=== PATIENT | female | born 1945 | race Caucasian/White ===

== ENCOUNTER 2018-07-18 20:27 | Inpatient (IN) | payer MEDICARE, OTHER ==
[~2018-07-18] VITALS: Ht 167.6 cm; Wt 65.5 kg
--- NOTE | ~2018-07-18 | EC ---
PATIENT:ALBINA GARCIA DATE OF SERVICE: 07/18/18 SEX: F MEDICAL RECORD: [id number] DATE OF : 43 LOCATION:[facility] AGE OF PATIENT: 73 ADMISSION DATE: 07/18/18 REFERRING PHYSICIAN: INTERPRETING PHYSICIAN: KAREN BEAULIEU MD ECHOCARDIOGRAM REPORT ECHO CHARGES 4 ECHO COMPLETE Date: 07/20/18 CLINICAL DIAGNOSIS: H/O AVR ECHOCARDIOGRAPHIC MEASUREMENTS (adult normal given) AC root (d.<3.7cm) 3.4 cm LV Septum d (<1.2 cm> 1.6 cm Valve Excursion 1.5 cm LV Septum (systole) 2.3 cm Left Atria (s.<4.0cm> 5.4 cm LVPW d(<1.2cm) 1.5 cm RV (d.<2.3cm) 5.1 cm LVPW (sytole) 1.8 cm LV diastole(<5.6CM) 6.1 cm MV E-F(>70mm/sec) cm LV systole 4.5 cm LVOT Diameter 2.3 cm MV exc.(>10mm) cm Est.ejection fraction (50-75%) % DOPPLER: LVIT cm/sec A 145 cm/sec E 182 cm/sec LA cm/sec RVSP 54.0 mmHg LVOT 73.0 cm/sec AOP1/2T m/s Asc. Ao 229 cm/sec RVOT 49.0 cm/sec RA cm/sec PA 73.0 cm/sec AV Gradient Peak 21.0 mmHg AV Mean 9.7 mmHg AV Area 1.5 cm MV Gradient Peak 17.0 mmHg MV Mean 5.9 mmHg MV Area cm COMMENTS: Inside Wireman: Katy CAGEOE Rn Placement: 1 Dr. Beaulieu TAPE# PACS Pericardial Effusion N DATE OF SERVICE: 07/27/2018 PROCEDURE: Echocardiogram, limited, for ejection fraction. FINDINGS: Left ventricular chamber size is dilated. Left ventricular systolic function is significantly reduced. Overall ejection fraction 20% to 25%. Ejection fraction does appear to be worse than the previous echo done 1 week ago. TRANSINT:[id number] Voice Confirmation ID: [id number] DOCUMENT ID: [id number] ECHOCARDIOGRAM REPORT [id number] ALBINA GARCIA KAREN BEAULIEU MD at 1025 CC: [id number] DICTATION DATE: 07/27/18 1135 JAVA TECHNICAL MANAGER: 07/27/18 1248 ADM IN [facility] [address] [id number]
--- NOTE | ~2018-07-18 | OP ---
PATIENT NAME: ALBINA GARCIA MEDICAL RECORD: [id number] :43 LOCATION:D. D.2105 ADMISSION DATE:07/18/18 SURGEON: KARLIE MENDEZ MD DATE OF OPERATION: 08/12/2018 PREOPERATIVE DIAGNOSIS: End-stage renal disease without chronic access for hemodialysis. POSTOPERATIVE DIAGNOSIS: End-stage renal disease without chronic access for hemodialysis. PROCEDURE: 1. Insertion of left internal jugular HemoSplit catheter (tunneled cuffed dual-lumen hemodialysis catheter) under fluoroscopic guidance. 2. Immediate surgeon interpretation of the fluoroscopic images. SURGEON: Karlie Mendez MD HIGH SCALER: None. BLOOD LOSS: Minimal. ANESTHESIA: Local with IV sedation. COMPLICATIONS: None. The risks, possible complications and alternatives to the procedure were explained to the patient's family. They elected to proceed. Initially, the patient who is demented elected not to have the procedure done. Her also elected not to have the procedure done. A son has now arrived and he has consented for his mother to go ahead and have the HemoSplit procedure performed. The patient pulled her left-sided Trialysis catheter out. There was no radiologist present for this procedure. Static fluoroscopic images were obtained and are kept in the PACS system. The surgeon interpretation of the fluoroscopic images is dictated within the body of this operative note. OPERATIVE COURSE: The patient was conveyed to the operating room electively on 08/12/2018. IV sedation was induced by the anesthesia staff. The left neck and left chest were sterilely prepped and draped. A local anesthetic was used to infiltrate the skin and subcutaneous tissues over the clavicle as well as the left neck. I did not try to place this HemoSplit catheter on the right because there was already a tunneled IV catheter on the right side, such as a Vogt catheter or a Broviac catheter. The patient has a pacemaker on the left, so I needed to try to avoid the pacemaker when inserting this HemoSplit catheter. The patient was positioned in the Trendelenburg position. The left internal jugular vein was percutaneously accessed in an antegrade fashion. A guidewire was passed easily. This was visualized under fluoroscopy. It was advanced into the superior vena cava. A skin jose was accomplished around the wire. Another skin jose was accomplished over the left clavicle. I tunneled a 23 cm HemoSplit catheter from the clavicular incision to the neck incision. Over the wire, I dilated with vascular dilators. This was visualized under fluoroscopy. A dilator sheath was then advanced over the wire. The dilator and wire were removed. Through the sheath, I advanced the tips of the HemoSplit catheter. OPERATIVE REPORT [id number] ALBINA GARCIA The Peel-Away sheath was then removed. I then pulled back on the HemoSplit catheter in order to seat the cuff in the subcutaneous tissues. As it turned out, the cuff came out completely. Under fluoroscopy, there was no apparent kinking or twisting of the HemoSplit catheter. The longest tip of the HemoSplit catheter appeared to be within the superior vena cava. I made an incision laterally from the HemoSplit catheter exit site. I then created subcutaneous flaps. I then buried the cuff as well as the HemoSplit catheter up to the flange with multiple interrupted horizontal mattress 4-0 nylons. The neck incision was closed with a single intracuticular 3-0 Vicryl. The flange of the HemoSplit catheter was sutured to the underlying skin with 4-0 nylons. A sterile dressing was applied. Both lumens flushed easily and aspirated dark, nonpulsatile blood. I then topped off both lumens of the HemoSplit catheter with the appropriate amount of concentrated heparin. TRANSINT:[id number] Voice Confirmation ID: [id number] DOCUMENT ID: [id number] KARLIE MENDEZ MD at 1055 CC: SHARDA WOOTEN MD and MALCOLM ARTHUR [id number] DICTATION DATE: 08/13/18 122 NAIL SPECIALIST: 08/13/18 1611 ADM IN [facility] [address] [place] [address]
--- NOTE | ~2018-07-18 | MORECARE ---
CASE MANAGEMENT DISCHARGE SUMMARY PATIENT: ALBINA GARCIA UNIT: [id number] ADM DATE: 07/18/18 AGE: 73 : [birth year] SEX: F ROOM/BED: D.2104 AUTHOR: CARMEN,DOC PHYSICIAN: REFERRING PHYSICIAN: SHARDA WOOTEN MD DATE OF SERVICE: 07/24/18 Discharge Plan Patient Name: ALBINA GARCIA Facility: [facility]:[place] : 1945 Planned Disposition: Home with Home Health Anticipated Discharge Date: Discharge Date: Expected LOS: Initial Reviewer: [id number] Initial Review Date: 07/18/2018 Generated: 07/24/18 11:24 am Comments DCP- Discharge Planning Updated by [email or web address]: Cesario Ha on 07/24/18 9:[address] Patient Name: ALBINA GARCIA Encounter No: [id number] : 1945 Primary Insurance: MEDICARE A & B Anticipated DC Date: Planned Disposition: Home with Home Health External Planned Provider: [facility] DCP follow-up note: CM CALLED [facility] CENTRAL INTAKE LINE, , SPOKE TO TERESA WHO VERIFIED THEY ARE ACTIVE FOR WOUND VAC AND IV INFUSION SERVICES AT HOME; TERESA IS UNSURE IF PT IS RECEIVING HOME PHYSICAL THERAPY AND WILL NEED THAT ADDED TO AN ORDER FOR HOME HEALTH RESUMPTION. CM FAXED UPDATE TO [facility] AT [phone]. SPOUSE BELIEVES PATIENT MAY NEED A WHEELCHAIR TO ASSIST HIM WITH GETTING PT OUT OF HOME. PT REPORTS PLAN FOR HOME WITH [facility] FOR INFUSION AND WOUND VAC DRESSING CHANGES TO CONTINUE. CM TO FOLLOW AND ASSIST NEEDED. NOTIFY [facility] OF DISCHARGE AT [phone], FAX DISCHARGE INFORMATION TO [facility] AT [phone]. Earring Maker: Cesario Ha DCP- Discharge Planning Updated by [email or web address]: Cesario Ha on 07/23/18 4:[address] Patient Name: ALBINA GARCIA Admission Status: ER Accout number: [id number] Admission Date: 07-18-2018 : 1945 Admission Diagnosis:ACUTE KIDNEY FAILURE, UNSPECIFIED Attending: SHARDA WOOTEN Current LOS: 5 Anticipated DC Date: Planned Disposition: Home with Home Health Primary Insurance: MEDICARE A & B PLANNED EXTERNAL PROVIDER: [facility] OFFICE Discharge Planning Comments: CM MET WITH PT AND SPOUSE IN ROOM TO DISCUSS DISCHARGE PLANNING AND NEEDS. ALBINA GARCIA provided verbal consent to discuss current and ongoing needs with/in the presence of: SPOUSE, RHIANNA. PT REPORTS LIVING AT HOME INDEPENDENTLY WITH HER SPOUSE. PT HAS ROLLING WALKER WITH SEAT AND BRAKES, BEDSIDE COMMODE AND HOME / PORTABLE OXYGEN FROM [facility]. PT HAS HOME HEALTH FOR INFUSION AND WOUND VAC CARE AND DRESSING CHANGES WITH [facility] OUT OF [place]. CM DISCUSSED AVAILABILITY OF HOME HEALTH, REHAB SERVICES AND MEDICAL EQUIPMENT. PT DENIES DISCHARGE NEEDS AND REPORTS SHE IS GOING HOME WITH [facility]. CM DISCUSSED PT'S DOCTOR AND THERAPY NOTES INDICATING PT BEING WEAK AND DISCUSSED AVAILABILITY OF REHAB SERVICES. PT STATES SHE IS GOING HOME AT DISCHARGE AN NO WHERE ELSE. PT'S SPOUSE REPORTS THEY MAY NEED A WHEELCHAIR TO GET PT OUT FOR LONG DISTANCES, SPOUSE WILL PICK PT UP FOR DISCHARGE HOME. IMPORTANT MESSAGE FROM MEDICARE PROVIDED AND EXPLAINED. SPOUSE BELIEVES PATIENT MAY NEED A WHEELCHAIR TO ASSIST HIM WITH GETTING PT OUT OF HOME. PT REPORTS PLAN FOR HOME WITH [facility] FOR INFUSION AND WOUND VAC DRESSING CHANGES TO CONTINUE. CM TO FOLLOW AND ASSIST NEEDED. Earring Maker: Cesario Ha DCPIA - Discharge Planning Initial Assessment Updated by [id number]: Cesario Ha on 07/23/18 5:29 pm * Is the patient Alert and Oriented? Yes * How many steps to enter\exit or inside your home? NONE * PCP DR. YEBOAH IN [place] * Pharmacy [facility] [place] * Preadmission Environment Home with Family * ADLs Partial Dependent * Partial ADLs (Assistance needed) Ambulation Medication Management Transfers * Equipment Bedside Commode Oxygen Rolling Walker Wound Vac * Other Equipment ROLLING WALKER WITH SEAT AND BRAKES HOME AND PORTABLE OXYGEN [facility] - MEDICAL EQUIPMENT PROVIDER * List name and contact numbers for known caregivers / representatives who currently or will assist patient after discharge: RHIANNA GARCIA, SPOUSE, , * Verbal permission to speak to the caregivers and representatives has been obtained from the patient. Yes * Community resources currently utilized Home Health Infusion Services * Please name any agencies selected above. [facility], HAS MEDICATIONS AT HOME * Additional services required to return to the preadmission environment? No * Can the patient safely return to the preadmission environment? Yes * Has this patient been hospitalized within the prior 30 days at any hospital? Yes Coverage Notice Reviewer: [id number] Pedro Luis Ha Notice Issued Date-Time: 07/23/2018 12:00 Notice Type: IM Discharge Notice Notice Delivered To: Family Member Relationship to Patient: Spouse Finish Sander Name: RHIANNA GARCIA Delivery Method: HAND - Hand Delivered Niki Days: Prior Verbal Notification: Recipient Understood Notice: Yes Recipient Signature: Yes Med Rec Note Co-signed by Attending: Coverage Notice Comment: Last DP export: 07/24/18 7:58 Patient Name: ALBINA GARCIA Page 54397 at 1024 All edits/amendments must be made on the electronic document DICTATION DATE: 07/24/18 1024 CULINARY DIRECTOR: EDDA 07/24/18 1024 RPT#: [id number] DC DATE: STATUS: ADM IN [facility] [address] [place] [address] END OF REPORT
--- NOTE | ~2018-07-18 | MORECARE ---
CASE MANAGEMENT DISCHARGE SUMMARY PATIENT: ALBINA GARCIA UNIT: [id number] ADM DATE: 07/18/18 AGE: 73 : 44 SEX: F ROOM/BED: D.2104 AUTHOR: ALEXA MORALES PHYSICIAN: REFERRING PHYSICIAN: SHARDA WOOTEN MD DATE OF SERVICE: 07/23/18 Discharge Plan Patient Name: ALBINA GARCIA Facility: [facility]:[place] : 1945 Planned Disposition: Home with Home Health Anticipated Discharge Date: Discharge Date: Expected LOS: Initial Reviewer: [email or web address] Initial Review Date: 07/18/2018 Generated: 07/23/18 6:29 pm Coverage Notice Reviewer: [id number] - Cesario Ha Notice Issued Date-Time: 07/23/2018 12:00 Notice Type: IM Discharge Notice Notice Delivered To: Family Member Relationship to Patient: Spouse Smash Hand Name: RHIANNA GARCIA Delivery Method: HAND - Hand Delivered Niki Days: Prior Verbal Notification: Recipient Understood Notice: Yes Recipient Signature: Yes Med Rec Note Co-signed by Attending: Coverage Notice Comment: Patient Name: ALBINA GARCIA Page 72340 at 1729 All edits/amendments must be made on the electronic document DICTATION DATE: 07/23/181728 HEEL ATTACHER WOOD: EDDA 07/23/181728 RPT#: [id number] DC DATE: STATUS: ADM IN [place] [address] [place] [address] END OF REPORT
--- NOTE | ~2018-07-18 | MORECARE ---
CASE MANAGEMENT DISCHARGE SUMMARY PATIENT: ALBINA GARCIA UNIT: [id number] ADM DATE: 07/18/18 AGE: 73 : 44 SEX: F ROOM/BED: D.2977 AUTHOR: CARMEN,DOC PHYSICIAN: REFERRING PHYSICIAN: SHARDA WOOTEN MD DATE OF SERVICE: 08/13/18 Discharge Plan Patient Name: ALBINA GARCIA Facility: [facility]:[place] : 1945 Planned Disposition: Mcfp Facility Anticipated Discharge Date: Discharge Date: Expected LOS: Initial Reviewer: [email or web address] Initial Review Date: 07/18/2018 Generated: 08/13/18 4:20 pm Comments DCP- Discharge Planning Updated by [email or web address]: Nitish Ferris on 08/13/18 2:[address] Patient Name: ALBINA GARCIA Encounter No: [id number] : 1945 Primary Insurance: MEDICARE A & B Anticipated DC Date: Planned Disposition: Mcfp Facility External Planned Provider: [facility] OR [facility], MEDICARE REHAB BED DCP follow-up note: CM SPOKE TO PT, SPOUSE AND SON IN ROOM, THEY ARE STILL WANTING REHAB IN [place]UST[place]IAL IN [place], FAMILY CONCERNED NO ONE HAS ACCEPTED YET. CM EXPLAINED THAT IF THE TWO CHOSEN BY FAMILY DO NOT ACCEPT, FAMILY AND CM WILL NEED TO SEND REFERRALS TO OTHERS IN THE [place] AREA. CM SPOKE TO DR. PRIDE, INFORMED THAT PT MAY NEED A SOUMYA DUE TO BEING STARTED ON [place] AND WE ARE WAITING GRADY PSYCH CONSULTATION. CM FAXED REFERRAL UPDATE TO [facility], . CM CALLED [facility], , LEFT MESSAGE FROM ONEAL GOMEZ. CM [facility], . CM CALLED [facility], LEFT MESSAGE FOR TATYANA AT [phone]. [facility] HAS REFUSED PT. CM WAITING ADMISSION DETERMINATIONS FROM [facility] [place] IF ACCEPTED, CM WILL NEED TO ARRANGE OUTPATIENT DIALYSIS UNIT. SAVANNAH TORRES DCP- Discharge Planning Updated by [id number]: Nitish Ferris on 08/11/18 10:[address] Patient Name: ALBINA GARCIA Encounter No: [id number] : 1945 Primary Insurance: MEDICARE A & B Anticipated DC Date: Planned Disposition: Mcfp Facility External Planned Provider: [facility] OR [facility], MEDICARE REHAB BED DCP follow-up note: CM CALLED [facility], [phone], SPOKE TO SANDRA WHO REPORTS THEY ARE NOT CURRENTLY ACCEPTING ANY MORE DIALYSIS PATIENTS. CM FAXED REFERRAL UPDATE TO [facility], . CM FAXED REFERRAL UPDATE TO [facility], , [facility] HAS REFUSED PT. CM WAITING ADMISSION DETERMINATIONS FROM [facility] [place]. IF ACCEPTED, CM WILL NEED TO ARRANGE OUTPATIENT DIALYSIS UNIT. NITISH FERRIS, CASE MANAGEMENT Appended by Nitish Ferris on 08/11/2018 11:19 GUNNER'S MATE M: CM RECEIVED CALL FROM TATYANA OF [facility], WHO WILL COME TO HOSPITAL TODAY TO EVAULATE PT FOR REHAB ADMISSION. THE FACILITY PREFERS Friday DIALYSIS SCHEDULE BUT MAY BE ABLE TO ACCOMODATE Friday SCHEDULE IF NECESSARY. TATYANA LEFT CONTACT NUMBER OF [phone]. EUN OF [facility] PATHWAYS NOTIFIED. [facility] HAS REFUSED PT. CM WAITING ADMISSION DETERMINATIONS FROM [facility] [place]. IF ACCEPTED, CM WILL NEED TO ARRANGE OUTPATIENT DIALYSIS UNIT. SAVANNAH TORRES DCP- Discharge Planning Updated by [id number]: Nitish Ferris on 08/07/18 3:[address] Patient Name: ALBINA GARCIA Encounter No: [id number] : 1945 Primary Insurance: MEDICARE A & B Anticipated DC Date: Planned Disposition: Mcfp Facility External Planned Provider: [facility] OR [facility], MEDICARE REHAB BED DCP follow-up note: CM MET WITH PT, SPOUSE AND SON IN ROOM TO DISCUSS DISCHARGE PLANNING AND NEEDS. PT WOULD ONLY ANSWER DIRECT QUESTIONS AND DID NOT ACTIVELY PARTICIPATE IN DISCHARGE PLANNING. PT'S SPOUSE AND SON ARE REQUESTING REHAB IN [place] AT [facility], [facility] OR [facility]. CHOICE SIGNED. CM NOTIFIED EUN RICHARD OF PATIENT PATHWAYS OF DISCHARGE PLAN. CM CALLED [facility], [phone], SPOKE TO SANDRA WHO REPORTS THEY ARE NOT CURRENTLY ACCEPTING ANY MORE DIALYSIS PATIENTS. CM CALLED [facility], , LEFT MESSAGE FOR ONEAL GOMEZ OF ADMISSIONS AND FAXED REFERRAL TO [phone]. THEY CAN ACCOMODATE DIALYSIS PATIENTS IN FACILITY. CM CALLED [facility], , SPOKE TO ALBINA, FAXED REFERRAL TO [phone], ATTENTION ADMISSIONS. THEY CAN ACCOMODATE DIALYSIS PATIENTS IN FACILITY. [facility] WILL NOT ACCEPT. CM WAITING ADMISSION DETERMINATIONS FROM [facility] IN [place]. IF ACCEPTED, CM WILL NEED TO ARRANGE OUTPATIENT DIALYSIS UNIT. NITISH FERRIS, CASE MANAGEMENT DCP- Discharge Planning Updated by [id number]: Nitish Ferris on 08/06/18 2:[address] Patient Name: ALBINA GARCIA Encounter No: [id number] : 1945 Primary Insurance: MEDICARE A & B Anticipated DC Date: Planned Disposition: Mcfp Facility External Planned Provider: TO BE DETERMINED DCP follow-up note: CM MET WITH PT AND SON IN ROOM TO DISCUSS DISCHARGE PLANNING AND NEEDS. PT'S SON INFORMED CM THAT PT'S SPOUSE ALONG WITH HE WILL BE ASSISTING WITH DISCHARGE PLANNING, THEY ARE CONSIDERING CUSTODIAL FOR REHAB AND BOTH WANT TO BE PRESENT TO DISCUSS ISSUES. PT'S SPOUSE IS OUT OF TOWN TODAY AND WILL BE BACK SOMETIME TOMORROW AND WILL NOTIFY CM WHEN THEY ARRIVE AT HOSPITAL TO DISCUSS DISCHARGE PLANNING. CM PROVIDED HOSPITAL WALL COVERING CONTRACTOR AND CM CONTACT INFORMATION. CM WAITING FAMILY ARRIVAL 08-07-18, TO DISCUSS CUSTODIAL REHAB PLACEMENT OPTIONS. Nitish Ferris, CASE MANAGEMENT DCP- Discharge Planning Updated by [id number]: Peyton Burrows on 07/27/18 5:[address] CM SPOKE WITH DAJUAN WITH [facility] CALLED REQUESTING FOR NOTIFICATION OF DISCHARGE [phone] DIRECT NUMBER [phone].CM will continue to follow and assist as needed with discharge planning / needs. DCP- Discharge Planning Updated by [id number]: Nitish Ferris on 07/24/18 9:[address] Patient Name: ALBINA GARCIA Encounter No: [id number] : 1945 Primary Insurance: MEDICARE A & B Anticipated DC Date: Planned Disposition: Home with Home Health External Planned Provider: [facility] DCP follow-up note: CM CALLED [facility] CENTRAL INTAKE LINE, , SPOKE TO TERESA WHO VERIFIED THEY ARE ACTIVE FOR WOUND VAC AND IV INFUSION SERVICES AT HOME; TERESA IS UNSURE IF PT IS RECEIVING HOME PHYSICAL THERAPY AND WILL NEED THAT ADDED TO AN ORDER FOR HOME HEALTH RESUMPTION. CM FAXED UPDATE TO [facility] AT [phone]. SPOUSE BELIEVES PATIENT MAY NEED A WHEELCHAIR TO ASSIST HIM WITH GETTING PT OUT OF HOME. PT REPORTS PLAN FOR HOME WITH [facility] FOR INFUSION AND WOUND VAC DRESSING CHANGES TO CONTINUE. CM TO FOLLOW AND ASSIST NEEDED. NOTIFY [facility] OF DISCHARGE AT [phone], FAX DISCHARGE INFORMATION TO [facility] AT [phone]. Director Of Neurology: Nitish Ferris DCP- Discharge Planning Updated by [id number]: Nitish Ferris on 07/23/18 4:[address] Patient Name: ALBINA GARCIA Admission Status: ER Accout number: [id number] Admission Date: 07-18-2018 : 1945 Admission Diagnosis:ACUTE KIDNEY FAILURE, UNSPECIFIED Attending: SHARDA WOOTEN Current LOS: 5 Anticipated DC Date: Planned Disposition: Home with Home Health Primary Insurance: MEDICARE A & B PLANNED EXTERNAL PROVIDER: [facility] OFFICE Discharge Planning Comments: CM MET WITH PT AND SPOUSE IN ROOM TO DISCUSS DISCHARGE PLANNING AND NEEDS. ALBINA GARCIA provided verbal consent to discuss current and ongoing needs with/in the presence of: SPOUSE, RHIANNA. PT REPORTS LIVING AT HOME INDEPENDENTLY WITH HER SPOUSE. PT HAS ROLLING WALKER WITH SEAT AND BRAKES, BEDSIDE COMMODE AND HOME / PORTABLE OXYGEN FROM [facility]. PT HAS HOME HEALTH FOR INFUSION AND WOUND VAC CARE AND DRESSING CHANGES WITH [facility] OUT OF [place]. CM DISCUSSED AVAILABILITY OF HOME HEALTH, REHAB SERVICES AND MEDICAL EQUIPMENT. PT DENIES DISCHARGE NEEDS AND REPORTS SHE IS GOING HOME WITH [facility]. CM DISCUSSED PT'S DOCTOR AND THERAPY NOTES INDICATING PT BEING WEAK AND DISCUSSED AVAILABILITY OF REHAB SERVICES. PT STATES SHE IS GOING HOME AT DISCHARGE AN NO WHERE ELSE. PT'S SPOUSE REPORTS THEY MAY NEED A WHEELCHAIR TO GET PT OUT FOR LONG DISTANCES, SPOUSE WILL PICK PT UP FOR DISCHARGE HOME. IMPORTANT MESSAGE FROM MEDICARE PROVIDED AND EXPLAINED. SPOUSE BELIEVES PATIENT MAY NEED A WHEELCHAIR TO ASSIST HIM WITH GETTING PT OUT OF HOME. PT REPORTS PLAN FOR HOME WITH [facility] FOR INFUSION AND WOUND VAC DRESSING CHANGES TO CONTINUE. CM TO FOLLOW AND ASSIST NEEDED. Director Of Neurology: Nitish Ferris DCPIA - Discharge Planning Initial Assessment Updated by [email or web address]: Nitish Ferris on 07/23/18 5:29 pm * Is the patient Alert and Oriented? Yes * How many steps to enter\exit or inside your home? NONE * PCP DR. YEBOAH IN [place] * Pharmacy [facility] [place] * Preadmission Environment Home with Family * ADLs Partial Dependent * Partial ADLs (Assistance needed) Ambulation Medication Management Transfers * Equipment Bedside Commode Oxygen Rolling Walker Wound Vac * Other Equipment ROLLING WALKER WITH SEAT AND BRAKES HOME AND PORTABLE OXYGEN [facility] - MEDICAL EQUIPMENT PROVIDER * List name and contact numbers for known caregivers / representatives who currently or will assist patient after discharge: RHIANNA GARCIA, SPOUSE, , * Verbal permission to speak to the caregivers and representatives has been obtained from the patient. Yes * Community resources currently utilized Home Health Infusion Services * Please name any agencies selected above. [facility], [facility] [employer], HAS MEDICATIONS AT HOME * Additional services required to return to the preadmission environment? No * Can the patient safely return to the preadmission environment? Yes * Has this patient been hospitalized within the prior 30 days at any hospital? Yes Coverage Notice Reviewer: [id number] - Nitish Ferris Notice Issued Date-Time: 07/23/2018 12:00 Notice Type: IM Discharge Notice Notice Delivered To: Family Member Relationship to Patient: Spouse Hyperion Administrator Name: RHIANNA GARCIA Delivery Method: HAND - Hand Delivered Niki Days: Prior Verbal Notification: Recipient Understood Notice: Yes Recipient Signature: Yes Med Rec Note Co-signed by Attending: Coverage Notice Comment: Reviewer: [id number] - Nitish Ferris Notice Issued Date-Time: 08/07/2018 11:45 Notice Type: Patient Choice Letter Notice Delivered To: Family Member Relationship to Patient: Spouse Hyperion Administrator Name: RHIANNA GARCIA Delivery Method: HAND - Hand Delivered Niki Days: Prior Verbal Notification: Recipient Understood Notice: Yes Recipient Signature: Yes Med Rec Note Co-signed by Attending: Coverage Notice Comment: [facility] [place] Last DP export: 08/11/18 10:25 Patient Name: ALBINA GARCIA Page 15345 at 1521 All edits/amendments must be made on the electronic document DICTATION DATE: 08/13/181519 TOOL DESIGN DRAFTER: EDDA 08/13/181519 RPT#: [id number] DC DATE: STATUS: ADM IN [facility] [address] [place] [address] END OF REPORT
--- NOTE | ~2018-07-18 | MORECARE ---
CASE MANAGEMENT DISCHARGE SUMMARY PATIENT: ALBINA GARCIA UNIT: [id number] ADM DATE: 07/18/18 AGE: 73 : 43 SEX: F ROOM/BED: D.8346 AUTHOR: CARMEN,DOC PHYSICIAN: REFERRING PHYSICIAN: SHARDA WOOTEN MD DATE OF SERVICE: 08/17/18 Discharge Plan Patient Name: ALBINA GARCIA Facility: [facility]:[place] : 1945 Planned Disposition: Residential Facility Anticipated Discharge Date: 08/17/18 Discharge Date: 08/17/2018 Expected LOS: 30 Initial Reviewer: [id number] Initial Review Date: 07/18/2018 Generated: 08/17/18 10:02 am Comments DCP- Discharge Planning Updated by [id number]: Nitish Ferris on 08/17/18 8:[address] Patient Name: ALBINA GARCIA Encounter No: [id number] : 1945 Primary Insurance: MEDICARE A & B Anticipated DC Date: 08-17-2018 Planned Disposition: DCP follow-up note: CM WAS NOTIFIED THAT PT . CM [facility]ED [facility], CANCELLED PLACEMENT REFERRAL WITH TATYANA AT [phone]. Nitish Ferris, CASE MANAGEMENT DCP- Discharge Planning Updated by [id number]: Nitish Ferris on 08/13/18 2:[address] Patient Name: ALBINA GARCIA Encounter No: [id number] : 1945 Primary Insurance: MEDICARE A & B Anticipated DC Date: Planned Disposition: Residential Facility External Planned Provider: [facility], MEDICARE REHAB BED DCP follow-up note: CM SPOKE TO PT, SPOUSE AND SON IN ROOM, THEY ARE STILL WANTING REHAB IN [facility] IN [place], FAMILY CONCERNED NO ONE HAS ACCEPTED YET. CM EXPLAINED THAT IF THE TWO CHOSEN BY FAMILY DO NOT ACCEPT, FAMILY AND CM WILL NEED TO SEND REFERRALS TO OTHERS IN THE [place] AREA. CM SPOKE TO DR. PRIDE, INFORMED THAT PT MAY NEED A SOUMYA DUE TO BEING STARTED ON [place] AND WE ARE WAITING GRADY PSYCH CONSULTATION. CM FAXED REFERRAL UPDATE TO [facility], . CM CALLED [facility], , LEFT MESSAGE FROM ONEAL GOMEZ. CM FAXED REFERRAL UPDATE TO [facility], . CM CALLED [facility], LEFT MESSAGE FOR TATYANA AT [phone]. [facility] HAS REFUSED PT. CM WAITING ADMISSION DETERMINATIONS FROM [facility] [place]. IF ACCEPTED, CM WILL NEED TO ARRANGE OUTPATIENT DIALYSIS UNIT. NITISH FERRIS, CASE MANAGEMENT DCP- Discharge Planning Updated by [id number]: Nitish Ferris on 08/11/18 10:[address] Patient Name: ALBINA GARCIA Encounter No: [id number] : 1945 Primary Insurance: MEDICARE A & B Anticipated DC Date: Planned Disposition: Residential Facility External Planned Provider: [facility] OR [facility], MEDICARE REHAB BED DCP follow-up note: CM CALLED [facility], [phone], SPOKE TO SANDRA WHO REPORTS THEY ARE NOT CURRENTLY ACCEPTING ANY MORE DIALYSIS PATIENTS. CM [facility], . CM FAXED REFERRAL UPDATE TO [facility], , [facility] HAS REFUSED PT. CM WAITING ADMISSION DETERMINATIONS FROM [facility] [place]. IF ACCEPTED, CM WILL NEED TO ARRANGE OUTPATIENT DIALYSIS UNIT. NITISH FERRIS, CASE MANAGEMENT Appended by Nitish Ferris on 08/11/2018 11:19 LACTATION NURSE: CM RECEIVED CALL FROM TATYANA OF [facility], WHO WILL COME TO HOSPITAL TODAY TO EVAULATE PT FOR REHAB ADMISSION. THE FACILITY PREFERS Friday DIALYSIS SCHEDULE BUT MAY BE ABLE TO ACCOMODATE Friday SCHEDULE IF NECESSARY. TATYANA LEFT CONTACT NUMBER OF [phone]. EUN OF [facility] NOTIFIED. [facility]KKRAIG[facility] HAS REFUSED PT. CM WAITING ADMISSION DETERMINATIONS FROM [facility] [place]. IF ACCEPTED, CM WILL NEED TO ARRANGE OUTPATIENT DIALYSIS UNIT. NITISH FERRIS CASE MANAGEMENT DCP- Discharge Planning Updated by [email or web address]: Nitish Ferris on 08/07/18 3:[address] Patient Name: ALBINA GARCIA Encounter No: [id number] : 1945 Primary Insurance: MEDICARE A & B Anticipated DC Date: Planned Disposition: Residential Facility External Planned Provider: [facility] OR [facility], MEDICARE REHAB BED DCP follow-up note: CM MET WITH PT, SPOUSE AND SON IN ROOM TO DISCUSS DISCHARGE PLANNING AND NEEDS. PT WOULD ONLY ANSWER DIRECT QUESTIONS AND DID NOT ACTIVELY PARTICIPATE IN DISCHARGE PLANNING. PT'S SPOUSE AND SON ARE REQUESTING REHAB IN [place] AT [facility], [facility] OR [facility]. CHOICE SIGNED. CM NOTIFIED EUN RICHARD OF [facility] OF DISCHARGE PLAN. CM CALLED [facility], [phone], SPOKE TO SANDRA WHO REPORTS THEY ARE NOT CURRENTLY ACCEPTING ANY MORE DIALYSIS PATIENTS. CM CALLED [facility], , LEFT MESSAGE FOR ONEAL GOMEZ OF ADMISSIONS AND FAXED REFERRAL TO [phone]. THEY CAN ACCOMODATE DIALYSIS PATIENTS IN FACILITY. CM CALLED [facility], , SPOKE TO ALBINA, FAXED REFERRAL TO [phone], ATTENTION ADMISSIONS. THEY CAN ACCOMODATE DIALYSIS PATIENTS IN FACILITY. [facility] WILL NOT ACCEPT. CM WAITING ADMISSION DETERMINATIONS FROM [facility] IN [place]. IF ACCEPTED, CM WILL NEED TO ARRANGE OUTPATIENT DIALYSIS UNIT. SAVANNAH TORRES MANAGEMENT DCP- Discharge Planning Updated by [id number]: Nitish Ferris on 08/06/18 2:[address] Patient Name: ALBINA GARCIA Encounter No: [id number] : 1945 Primary Insurance: MEDICARE A & B Anticipated DC Date: Planned Disposition: Residential Facility External Planned Provider: TO BE DETERMINED DCP follow-up note: CM MET WITH PT AND SON IN ROOM TO DISCUSS DISCHARGE PLANNING AND NEEDS. PT'S SON INFORMED CM THAT PT'S SPOUSE ALONG WITH HE WILL BE ASSISTING WITH DISCHARGE PLANNING, THEY ARE CONSIDERING [facility] FOR REHAB AND BOTH WANT TO BE PRESENT TO DISCUSS ISSUES. PT'S SPOUSE IS OUT OF TOWN TODAY AND WILL BE BACK SOMETIME TOMORROW AND WILL NOTIFY CM WHEN THEY ARRIVE AT HOSPITAL TO DISCUSS DISCHARGE PLANNING. CM PROVIDED HOSPITAL FOUNDER AND PRESIDENT AND CM CONTACT INFORMATION. CM WAITING FAMILY ARRIVAL 08-07-18, TO DISCUSS [facility] REHAB PLACEMENT OPTIONS. Nitish Ferris, CASE MANAGEMENT DCP- Discharge Planning Updated by [id number]: Peyton Burrows on 07/27/18 5:[address] CM SPOKE WITH CRYSTAL WITH [facility] CALLED REQUESTING FOR NOTIFICATION OF DISCHARGE [phone] DIRECT NUMBER [phone].CM will continue to follow and assist as needed with discharge planning / needs. DCP- Discharge Planning Updated by [id number]: Nitish Ferris on 07/24/18 9:[address] Patient Name: ALBINA GARCIA Encounter No: [id number] : 1945 Primary Insurance: MEDICARE A & B Anticipated DC Date: Planned Disposition: Home with Home Health External Planned Provider: [facility] DCP follow-up note: CM CALLED [facility]TRAL INTAKE LINE, , SPOKE TO TERESA WHO VERIFIED THEY ARE ACTIVE FOR WOUND VAC AND IV INFUSION SERVICES AT HOME; TERESA IS UNSURE IF PT IS RECEIVING HOME PHYSICAL THERAPY AND WILL NEED THAT ADDED TO AN ORDER FOR HOME HEALTH RESUMPTION. CM FAXED UPDATE TO [facility] AT [phone]. SPOUSE BELIEVES PATIENT MAY NEED A WHEELCHAIR TO ASSIST HIM WITH GETTING PT OUT OF HOME. PT REPORTS PLAN FOR HOME WITH [facility] FOR INFUSION AND WOUND VAC DRESSING CHANGES TO CONTINUE. CM TO FOLLOW AND ASSIST NEEDED. NOTIFY [facility] OF DISCHARGE AT [phone], FAX DISCHARGE INFORMATION TO [facility] AT [phone]. Clinical Orthoptist: Nitish Ferris DCP- Discharge Planning Updated by [id number]: Nitish Ferris on 07/23/18 4:[address] Patient Name: ALBINA GARCIA Admission Status: ER Accout number: [id number] Admission Date: 07-18-2018 : 1945 Admission Diagnosis:ACUTE KIDNEY FAILURE, UNSPECIFIED Attending: SHARDA WOOTEN Current LOS: 5 Anticipated DC Date: Planned Disposition: Home with Home Health Primary Insurance: MEDICARE A & B PLANNED EXTERNAL PROVIDER: [facility] OFFICE Discharge Planning Comments: CM MET WITH PT AND SPOUSE IN ROOM TO DISCUSS DISCHARGE PLANNING AND NEEDS. ALBINA GARCIA provided verbal consent to discuss current and ongoing needs with/in the presence of: SPOUSE, RHIANNA. PT REPORTS LIVING AT HOME INDEPENDENTLY WITH HER SPOUSE. PT HAS ROLLING WALKER WITH SEAT AND BRAKES, BEDSIDE COMMODE AND HOME / PORTABLE OXYGEN FROM [facility]. PT HAS HOME HEALTH FOR INFUSION AND WOUND VAC CARE AND DRESSING CHANGES WITH [facility] OUT OF [place]. CM DISCUSSED AVAILABILITY OF HOME HEALTH, REHAB SERVICES AND MEDICAL EQUIPMENT. PT DENIES DISCHARGE NEEDS AND REPORTS SHE IS GOING HOME WITH CONTINUED HOME HEALTH. CM DISCUSSED PT'S DOCTOR AND THERAPY NOTES INDICATING PT BEING WEAK AND DISCUSSED AVAILABILITY OF REHAB SERVICES. PT STATES SHE IS GOING HOME AT DISCHARGE AN NO WHERE ELSE. PT'S SPOUSE REPORTS THEY MAY NEED A WHEELCHAIR TO GET PT OUT FOR LONG DISTANCES, SPOUSE WILL PICK PT UP FOR DISCHARGE HOME. IMPORTANT MESSAGE FROM MEDICARE PROVIDED AND EXPLAINED. SPOUSE BELIEVES PATIENT MAY NEED A WHEELCHAIR TO ASSIST HIM WITH GETTING PT OUT OF HOME. PT REPORTS PLAN FOR HOME WITH [facility] FOR INFUSION AND WOUND VAC DRESSING CHANGES TO CONTINUE. CM TO FOLLOW AND ASSIST NEEDED. Clinical Orthoptist: Nitish Ferris DCPIA - Discharge Planning Initial Assessment Updated by [id number]: Nitish Ferris on 07/23/18 5:29 pm * Is the patient Alert and Oriented? Yes * How many steps to enter\exit or inside your home? NONE * PCP DR. YEBOAH IN [place] * Pharmacy [facility] IN [place] * Preadmission Environment Home with Family * ADLs Partial Dependent * Partial ADLs (Assistance needed) Ambulation Medication Management Transfers * Equipment Bedside Commode Oxygen Rolling Walker Wound Vac * Other Equipment ROLLING WALKER WITH SEAT AND BRAKES HOME AND PORTABLE OXYGEN [facility] - MEDICAL EQUIPMENT PROVIDER * List name and contact numbers for known caregivers / representatives who currently or will assist patient after discharge: RHIANNA GARCIA, SPOUSE, , * Verbal permission to speak to the caregivers and representatives has been obtained from the patient. Yes * Community resources currently utilized Home Health Infusion Services * Please name any agencies selected above. [facility] [employer], HAS MEDICATIONS AT HOME * Additional services required to return to the preadmission environment? No * Can the patient safely return to the preadmission environment? Yes * Has this patient been hospitalized within the prior 30 days at any hospital? Yes Coverage Notice Reviewer: [id number] Pedro Luis Ferris Notice Issued Date-Time: 07/23/2018 12:00 Notice Type: IM Discharge Notice Notice Delivered To: Family Member Relationship to Patient: Spouse Tie Presser Name: RHIANNA GARCIA Delivery Method: HAND - Hand Delivered Niki Days: Prior Verbal Notification: Recipient Understood Notice: Yes Recipient Signature: Yes Med Rec Note Co-signed by Attending: Coverage Notice Comment: Reviewer: [id number] Pedro Luis Ferris Notice Issued Date-Time: 08/07/2018 11:45 Notice Type: Patient Choice Letter Notice Delivered To: Family Member Relationship to Patient: Spouse Tie Presser Name: RHIANNA GARCIA Delivery Method: HAND - Hand Delivered Niki Days: Prior Verbal Notification: Recipient Understood Notice: Yes Recipient Signature: Yes Med Rec Note Co-signed by Attending: Coverage Notice Comment: [facility] [place] Last DP export: 08/13/18 2:20 Patient Name: ALBINA GARCIA Page 53825 at 0902 All edits/amendments must be made on the electronic document DICTATION DATE: 08/17/18901 MANAGER AGRICULTURAL: EDDA 08/17/18901 RPT#: [id number] DC DATE:08/17/18 STATUS: DIS IN [facility] [address] [place] [address] END OF REPORT
--- NOTE | ~2018-07-18 | MORECARE ---
CASE MANAGEMENT DISCHARGE SUMMARY PATIENT: ALBINA GARCIA UNIT: [id number] ADM DATE: 07/18/18 AGE: 73 : 44 SEX: F ROOM/BED: D.2109 AUTHOR: CARMENDOC PHYSICIAN: REFERRING PHYSICIAN: SHARDA WOOTEN MD DATE OF SERVICE: 08/07/18 Discharge Plan Patient Name: ALBINA GARCIA Facility: [facility]:[place] : 1945 Planned Disposition: Snf Facility Anticipated Discharge Date: Discharge Date: Expected LOS: Initial Reviewer: [id number] Initial Review Date: 07/18/2018 Generated: 08/07/18 5:45 pm Comments DCP- Discharge Planning Updated by [id number]: Cesario Ha on 08/06/18 2:[address] Patient Name: ALBINA GARCIA Encounter No: [id number] : 1945 Primary Insurance: MEDICARE A & B Anticipated DC Date: Planned Disposition: Snf Facility External Planned Provider: TO BE DETERMINED DCP follow-up note: CM MET WITH PT AND SON IN ROOM TO DISCUSS DISCHARGE PLANNING AND NEEDS. PT'S SON INFORMED CM THAT PT'S SPOUSE ALONG WITH HE WILL BE ASSISTING WITH DISCHARGE PLANNING, THEY ARE CONSIDERING [facility] FOR REHAB AND BOTH WANT TO BE PRESENT TO DISCUSS ISSUES. PT'S SPOUSE IS OUT OF TOWN TODAY AND WILL BE BACK SOMETIME TOMORROW AND WILL NOTIFY CM WHEN THEY ARRIVE AT HOSPITAL TO DISCUSS DISCHARGE PLANNING. CM PROVIDED HOSPITAL BULB PLANTER AND CM CONTACT INFORMATION. CM WAITING FAMILY ARRIVAL 08-07-18, TO DISCUSS [facility] REHAB PLACEMENT OPTIONS. Cesario Ha, SAVANNAH MANAGEMENT DCP- Discharge Planning Updated by [id number]: Peyton Burrows on 07/27/18 5:[address] CM SPOKE WITH DAJUAN WITH [facility] CALLED REQUESTING FOR NOTIFICATION OF DISCHARGE [phone] DIRECT NUMBER [phone].CM will continue to follow and assist as needed with discharge planning / needs. DCP- Discharge Planning Updated by [email or web address]: Cesario Ha on 07/24/18 9:[address] Patient Name: ALBINA GARCIA Encounter No: [id number] : 1945 Primary Insurance: MEDICARE A & B Anticipated DC Date: Planned Disposition: Home with Home Health External Planned Provider: [facility] DCP follow-up note: CM CALLED [facility] CENTRAL INTAKE LINE, , SPOKE TO TERESA WHO VERIFIED THEY ARE ACTIVE FOR WOUND VAC AND IV INFUSION SERVICES AT HOME; TERESA IS UNSURE IF PT IS RECEIVING HOME PHYSICAL THERAPY AND WILL NEED THAT ADDED TO AN ORDER FOR HOME HEALTH RESUMPTION. CM FAXED UPDATE TO [facility] AT [phone]. SPOUSE BELIEVES PATIENT MAY NEED A WHEELCHAIR TO ASSIST HIM WITH GETTING PT OUT OF HOME. PT REPORTS PLAN FOR HOME WITH [facility] FOR INFUSION AND WOUND VAC DRESSING CHANGES TO CONTINUE. CM TO FOLLOW AND ASSIST NEEDED. NOTIFY [facility] OF DISCHARGE AT [phone], FAX DISCHARGE INFORMATION TO [facility] AT [phone]. Engineering Writer: Cesario Ha DCP- Discharge Planning Updated by [id number]: Cesario Ha on 07/23/18 4:[address] Patient Name: ALBINA GARCIA Admission Status: ER Accout number: [id number] Admission Date: 07-18-2018 : 1945 Admission Diagnosis:ACUTE KIDNEY FAILURE, UNSPECIFIED Attending: SHARDA WOOTEN Current LOS: 5 Anticipated DC Date: Planned Disposition: Home with Home Health Primary Insurance: MEDICARE A & B PLANNED EXTERNAL PROVIDER: [facility] OFFICE Discharge Planning Comments: CM MET WITH PT AND SPOUSE IN ROOM TO DISCUSS DISCHARGE PLANNING AND NEEDS. ALBINA GARCIA provided verbal consent to discuss current and ongoing needs with/in the presence of: SPOUSE, RHIANNA. PT REPORTS LIVING AT HOME INDEPENDENTLY WITH HER SPOUSE. PT HAS ROLLING WALKER WITH SEAT AND BRAKES, BEDSIDE COMMODE AND HOME / PORTABLE OXYGEN FROM [facility]. PT HAS HOME HEALTH FOR INFUSION AND WOUND VAC CARE AND DRESSING CHANGES WITH [facility] OUT OF [place]. CM DISCUSSED AVAILABILITY OF HOME HEALTH, REHAB SERVICES AND MEDICAL EQUIPMENT. PT DENIES DISCHARGE NEEDS AND REPORTS SHE IS GOING HOME WITH CONT[facility] HOME HEALTH. CM DISCUSSED PT'S DOCTOR AND THERAPY NOTES INDICATING PT BEING WEAK AND DISCUSSED AVAILABILITY OF REHAB SERVICES. PT STATES SHE IS GOING HOME AT DISCHARGE AN NO WHERE ELSE. PT'S SPOUSE REPORTS THEY MAY NEED A WHEELCHAIR TO GET PT OUT FOR LONG DISTANCES, SPOUSE WILL PICK PT UP FOR DISCHARGE HOME. IMPORTANT MESSAGE FROM MEDICARE PROVIDED AND EXPLAINED. SPOUSE BELIEVES PATIENT MAY NEED A WHEELCHAIR TO ASSIST HIM WITH GETTING PT OUT OF HOME. PT REPORTS PLAN FOR HOME WITH [facility] FOR INFUSION AND WOUND VAC DRESSING CHANGES TO CONTINUE. CM TO FOLLOW AND ASSIST NEEDED. Engineering Writer: Cesario Ha DCPIA - Discharge Planning Initial Assessment Updated by [email or web address]: Cesario Ha on 07/23/18 5:29 pm * Is the patient Alert and Oriented? Yes * How many steps to enter\exit or inside your home? NONE * PCP DR. YEBOAH IN [place] * Pharmacy [facility] IN [place] * Preadmission Environment Home with Family * ADLs Partial Dependent * Partial ADLs (Assistance needed) Ambulation Medication Management Transfers * Equipment Bedside Commode Oxygen Rolling Walker Wound Vac * Other Equipment ROLLING WALKER WITH SEAT AND BRAKES HOME AND PORTABLE OXYGEN [facility] - MEDICAL EQUIPMENT PROVIDER * List name and contact numbers for known caregivers / representatives who currently or will assist patient after discharge: RHIANNA GARCIA, SPOUSE, , * Verbal permission to speak to the caregivers and representatives has been obtained from the patient. Yes * Community resources currently utilized Home Health Infusion Services * Please name any agencies selected above. [facility], HAS MEDICATIONS AT HOME * Additional services required to return to the preadmission environment? No * Can the patient safely return to the preadmission environment? Yes * Has this patient been hospitalized within the prior 30 days at any hospital? Yes External Providers External Provider: OTHER-OTHER Next Contact Date: 08/10/2018 Service Request Date: Service Type: Resolution: Reviewer: Comments: External Provider: OTHER-OTHER Next Contact Date: 08/10/2018 Service Request Date: Service Type: Resolution: Reviewer: Comments: Coverage Notice Reviewer: [id number] - Cesario Ha Notice Issued Date-Time: 07/23/2018 12:00 Notice Type: IM Discharge Notice Notice Delivered To: Family Member Relationship to Patient: Spouse Aerospace Engineer Officer Armament Name: RHIANNA GARCIA Delivery Method: HAND - Hand Delivered Niki Days: Prior Verbal Notification: Recipient Understood Notice: Yes Recipient Signature: Yes Med Rec Note Co-signed by Attending: Coverage Notice Comment: Last DP export: 08/07/18 3:23 Patient Name: ALBINA GARCIA Page 83405 at 1645 All edits/amendments must be made on the electronic document DICTATION DATE: 08/07/181644 DENTAL LABORATORY TECHNICIAN APPRENTICE: EDDA 08/07/181644 RPT#: [id number] DC DATE: STATUS: ADM IN [facility] [address] [place] [address] END OF REPORT
--- NOTE | ~2018-07-18 | MORECARE ---
CASE MANAGEMENT DISCHARGE SUMMARY PATIENT: ALBINA GARCIA UNIT: [id number] ADM DATE: 07/18/18 AGE: 73 : 43 SEX: F ROOM/BED: D.0343 AUTHOR: CARMEN,DOC PHYSICIAN: REFERRING PHYSICIAN: SHARDA WOOTEN MD DATE OF SERVICE: 08/11/18 Discharge Plan Patient Name: ALBINA GARCIA Facility: [facility]:[place] : 1945 Planned Disposition: Custodial Facility Anticipated Discharge Date: Discharge Date: Expected LOS: Initial Reviewer: [id number] Initial Review Date: 07/18/2018 Generated: 08/11/18 9:23 am Comments DCP- Discharge Planning Updated by [id number]: Nitish Ferris on 08/11/18 7:[address] Patient Name: ALBINA GARCIA Encounter No: [id number] : 1945 Primary Insurance: MEDICARE A & B Anticipated DC Date: Planned Disposition: Custodial Facility External Planned Provider: [facility] OR [facility], MEDICARE REHAB BED DCP follow-up note: CM CALLED [facility], [phone], SPOKE TO SANDRA WHO REPORTS THEY ARE NOT CURRENTLY ACCEPTING ANY MORE DIALYSIS PATIENTS. CM FAXED REFERRAL UPDATE TO [facility], . CM FAXED REFERRAL UPDATE TO [facility], , [facility] HAS REFUSED PT. CM WAITING ADMISSION DETERMINATIONS FROM [facility] IN [place]. IF ACCEPTED, CM WILL NEED TO ARRANGE OUTPATIENT DIALYSIS UNIT. SAVANNAH TORRES DCP- Discharge Planning Updated by [id number]: Nitish Ferris on 08/07/18 3:[address] Patient Name: ALBINA GARCIA Encounter No: [id number] : 1945 Primary Insurance: MEDICARE A & B Anticipated DC Date: Planned Disposition: Custodial Facility External Planned Provider: [facility] OR [facility], MEDICARE REHAB BED DCP follow-up note: CM MET WITH PT, SPOUSE AND SON IN ROOM TO DISCUSS DISCHARGE PLANNING AND NEEDS. PT WOULD ONLY ANSWER DIRECT QUESTIONS AND DID NOT ACTIVELY PARTICIPATE IN DISCHARGE PLANNING. PT'S SPOUSE AND SON ARE REQUESTING REHAB IN [place] AT [facility], [facility] OR [facility]. CHOICE SIGNED. CM NOTIFIED EUN RICHARD OF PATIENT PATHWAYS OF DISCHARGE PLAN. CM CALLED [facility], [phone], SPOKE TO SANDRA WHO REPORTS THEY ARE NOT CURRENTLY ACCEPTING ANY MORE DIALYSIS PATIENTS. CM CALLED [facility], , LEFT MESSAGE FOR ONEAL GOMEZ OF ADMISSIONS AND FAXED REFERRAL TO [phone]. THEY CAN ACCOMODATE DIALYSIS PATIENTS IN FACILITY. CM CALLED [facility], , SPOKE TO ALBINA, FAXED REFERRAL TO [phone], ATTENTION ADMISSIONS. THEY CAN ACCOMODATE DIALYSIS PATIENTS IN FACILITY. [facility] WILL NOT ACCEPT. CM WAITING ADMISSION DETERMINATIONS FROM [facility] IN [place]. IF ACCEPTED, CM WILL NEED TO ARRANGE OUTPATIENT DIALYSIS UNIT. NITISH FERRIS, CASE MANAGEMENT DCP- Discharge Planning Updated by [id number]: Nitish Ferris on 08/06/18 2:[address] Patient Name: ALBINA GARCIA Encounter No: [id number] : 1945 Primary Insurance: MEDICARE A & B Anticipated DC Date: Planned Disposition: Custodial Facility External Planned Provider: TO BE DETERMINED DCP follow-up note: CM MET WITH PT AND SON IN ROOM TO DISCUSS DISCHARGE PLANNING AND NEEDS. PT'S SON INFORMED CM THAT PT'S SPOUSE ALONG WITH HE WILL BE ASSISTING WITH DISCHARGE PLANNING, THEY ARE CONSIDERING [facility] FOR REHAB AND BOTH WANT TO BE PRESENT TO DISCUSS ISSUES. PT'S SPOUSE IS OUT OF TOWN TODAY AND WILL BE BACK SOMETIME TOMORROW AND WILL NOTIFY CM WHEN THEY ARRIVE AT HOSPITAL TO DISCUSS DISCHARGE PLANNING. CM PROVIDED HOSPITAL FACIALIST AND CM CONTACT INFORMATION. CM WAITING FAMILY ARRIVAL 08-07-18, TO DISCUSS [facility] REHAB PLACEMENT OPTIONS. Nitish Ferris, CASE MANAGEMENT DCP- Discharge Planning Updated by [id number]: Peyton Burrows on 07/27/18 5:[address] CM SPOKE WITH DAJUAN WITH [facility] CALLED REQUESTING FOR NOTIFICATION OF DISCHARGE [phone] DIRECT NUMBER [phone].CM will continue to follow and assist as needed with discharge planning / needs. DCP- Discharge Planning Updated by [email or web address]: Nitish Ferris on 07/24/18 9:[address] Patient Name: ALBINA GARCIA Encounter No: [id number] : 1945 Primary Insurance: MEDICARE A & B Anticipated DC Date: Planned Disposition: Home with Home Health External Planned Provider: [facility] DCP follow-up note: CM CALLED [facility], , SPOKE TO TERESA WHO VERIFIED THEY ARE ACTIVE FOR WOUND VAC AND IV INFUSION SERVICES AT HOME; [facility] IS UNSURE IF PT IS RECEIVING HOME PHYSICAL THERAPY AND WILL NEED THAT ADDED TO AN ORDER FOR HOME HEALTH RESUMPTION. CM FAXED UPDATE TO [facility] AT [phone]. SPOUSE BELIEVES PATIENT MAY NEED A WHEELCHAIR TO ASSIST HIM WITH GETTING PT OUT OF HOME. PT REPORTS PLAN FOR HOME WITH [facility] FOR INFUSION AND WOUND VAC DRESSING CHANGES TO CONTINUE. CM TO FOLLOW AND ASSIST NEEDED. NOTIFY [facility] OF DISCHARGE AT [phone], FAX DISCHARGE INFORMATION TO [facility] AT [phone]. Promotions Team Leader: Nitish Ferris DCP- Discharge Planning Updated by [id number]: Nitish Ferris on 07/23/18 4:[address] Patient Name: ALBINA GARCIA Admission Status: ER Accout number: [id number] Admission Date: 07-18-2018 : 1945 Admission Diagnosis:ACUTE KIDNEY FAILURE, UNSPECIFIED Attending: SHARDA WOOTEN Current LOS: 5 Anticipated DC Date: Planned Disposition: Home with Home Health Primary Insurance: MEDICARE A & B PLANNED EXTERNAL PROVIDER: [facility] OFFICE Discharge Planning Comments: CM MET WITH PT AND SPOUSE IN ROOM TO DISCUSS DISCHARGE PLANNING AND NEEDS. ALBINA GARCIA provided verbal consent to discuss current and ongoing needs with/in the presence of: SPOUSE, RHIANNA. PT REPORTS LIVING AT HOME INDEPENDENTLY WITH HER SPOUSE. PT HAS ROLLING WALKER WITH SEAT AND BRAKES, BEDSIDE COMMODE AND HOME / PORTABLE OXYGEN FROM [facility]. PT HAS HOME HEALTH FOR INFUSION AND WOUND VAC CARE AND DRESSING CHANGES WITH [facility] OUT OF [place]. CM DISCUSSED AVAILABILITY OF HOME HEALTH, REHAB SERVICES AND MEDICAL EQUIPMENT. PT DENIES DISCHARGE NEEDS AND REPORTS SHE IS GOING HOME WITH CONTINUED HOME HEALTH. CM DISCUSSED PT'S DOCTOR AND THERAPY NOTES INDICATING PT BEING WEAK AND DISCUSSED AVAILABILITY OF REHAB SERVICES. PT STATES SHE IS GOING HOME AT DISCHARGE AN NO WHERE ELSE. PT'S SPOUSE REPORTS THEY MAY NEED A WHEELCHAIR TO GET PT OUT FOR LONG DISTANCES, SPOUSE WILL PICK PT UP FOR DISCHARGE HOME. IMPORTANT MESSAGE FROM MEDICARE PROVIDED AND EXPLAINED. SPOUSE BELIEVES PATIENT MAY NEED A WHEELCHAIR TO ASSIST HIM WITH GETTING PT OUT OF HOME. PT REPORTS PLAN FOR HOME WITH [facility] FOR INFUSION AND WOUND VAC DRESSING CHANGES TO CONTINUE. CM TO FOLLOW AND ASSIST NEEDED. Promotions Team Leader: Nitish Ferris DCPIA - Discharge Planning Initial Assessment Updated by [id number]: Nitsih Ferris on 07/23/18 5:29 pm * Is the patient Alert and Oriented? Yes * How many steps to enter\exit or inside your home? NONE * PCP DR. YEBOAH IN [place] * Pharmacy [facility] [place] * Preadmission Environment Home with Family * ADLs Partial Dependent * Partial ADLs (Assistance needed) Ambulation Medication Management Transfers * Equipment Bedside Commode Oxygen Rolling Walker Wound Vac * Other Equipment ROLLING WALKER WITH SEAT AND BRAKES HOME AND PORTABLE OXYGEN [facility] [employer] - MEDICAL EQUIPMENT PROVIDER * List name and contact numbers for known caregivers / representatives who currently or will assist patient after discharge: RHIANNA GARCIA, SPOUSE, , * Verbal permission to speak to the caregivers and representatives has been obtained from the patient. Yes * Community resources currently utilized Home Health Infusion Services * Please name any agencies selected above. [facility] [employer], HAS MEDICATIONS AT HOME * Additional services required to return to the preadmission environment? No * Can the patient safely return to the preadmission environment? Yes * Has this patient been hospitalized within the prior 30 days at any hospital? Yes Coverage Notice Reviewer: [id number] - Nitish Ferris Notice Issued Date-Time: 07/23/2018 12:00 Notice Type: IM Discharge Notice Notice Delivered To: Family Member Relationship to Patient: Spouse Roofing Apprentice Name: RHIANNA GARCIA Delivery Method: HAND - Hand Delivered Niki Days: Prior Verbal Notification: Recipient Understood Notice: Yes Recipient Signature: Yes Med Rec Note Co-signed by Attending: Coverage Notice Comment: Reviewer: [id number] - Nitish Ferris Notice Issued Date-Time: 08/07/2018 11:45 Notice Type: Patient Choice Letter Notice Delivered To: Family Member Relationship to Patient: Spouse Roofing Apprentice Name: RHIANNA GARCIA Delivery Method: HAND - Hand Delivered Niki Days: Prior Verbal Notification: Recipient Understood Notice: Yes Recipient Signature: Yes Med Rec Note Co-signed by Attending: Coverage Notice Comment: [facility] [place] Last DP export: 08/07/18 3:54 Patient Name: ALBINA GARCIA Page [id number] at 0823 All edits/amendments must be made on the electronic document DICTATION DATE: 08/11/18821 ENTRY LEVEL SALES CONSULTANT: EDDA 08/11/18821 RPT#: [id number] DC DATE: STATUS: ADM IN [facility] [address] [place] [address] END OF REPORT
--- NOTE | ~2018-07-18 | MORECARE ---
CASE MANAGEMENT DISCHARGE SUMMARY PATIENT: ALBINA GARCIA UNIT: [id number] ADM DATE: 07/18/18 AGE: 73 : 44 SEX: F ROOM/BED: D.0033 AUTHOR: CARMENDOC PHYSICIAN: REFERRING PHYSICIAN: SHARDA WOOTEN MD DATE OF SERVICE: 07/24/18 Discharge Plan Patient Name: ALBINA GARCIA Facility: [facility]:[place] : 1945 Planned Disposition: Home with Home Health Anticipated Discharge Date: Discharge Date: Expected LOS: Initial Reviewer: [id number] Initial Review Date: 07/18/2018 Generated: 07/24/18 9:58 am Comments DCP- Discharge Planning Updated by [id number]: Cesario Ha on 07/23/18 4:[address] Patient Name: ALBINA GARCIA Admission Status: ER Accout number: [id number] Admission Date: 07-18-2018 : 1945 Admission Diagnosis:ACUTE KIDNEY FAILURE, UNSPECIFIED Attending: SHARDA WOOTEN Current LOS: 5 Anticipated DC Date: Planned Disposition: Home with Home Health Primary Insurance: MEDICARE A & B PLANNED EXTERNAL PROVIDER: [facility] OFFICE Discharge Planning Comments: CM MET WITH PT AND SPOUSE IN ROOM TO DISCUSS DISCHARGE PLANNING AND NEEDS. ALBINA GARCIA provided verbal consent to discuss current and ongoing needs with/in the presence of: SPOUSE, RHIANNA. PT REPORTS LIVING AT HOME INDEPENDENTLY WITH HER SPOUSE. PT HAS ROLLING WALKER WITH SEAT AND BRAKES, BEDSIDE COMMODE AND HOME / PORTABLE OXYGEN FROM [facility]. PT HAS HOME HEALTH FOR INFUSION AND WOUND VAC CARE AND DRESSING CHANGES WITH [facility] OUT OF [place]. CM DISCUSSED AVAILABILITY OF HOME HEALTH, REHAB SERVICES AND MEDICAL EQUIPMENT. PT DENIES DISCHARGE NEEDS AND REPORTS SHE IS GOING HOME WITH [facility] HOME HEALTH. CM DISCUSSED PT'S DOCTOR AND THERAPY NOTES INDICATING PT BEING WEAK AND DISCUSSED AVAILABILITY OF REHAB SERVICES. PT STATES SHE IS GOING HOME AT DISCHARGE AN NO WHERE ELSE. PT'S SPOUSE REPORTS THEY MAY NEED A WHEELCHAIR TO GET PT OUT FOR LONG DISTANCES, SPOUSE WILL PICK PT UP FOR DISCHARGE HOME. IMPORTANT MESSAGE FROM MEDICARE PROVIDED AND EXPLAINED. SPOUSE BELIEVES PATIENT MAY NEED A WHEELCHAIR TO ASSIST HIM WITH GETTING PT OUT OF HOME. PT REPORTS PLAN FOR HOME WITH [facility] [place] [employer] FOR INFUSION AND WOUND VAC DRESSING CHANGES TO CONTINUE. CM TO FOLLOW AND ASSIST NEEDED. Job Spotter: Cesario Ha DCPIA - Discharge Planning Initial Assessment Updated by [id number]: Cesario Ha on 07/23/18 5:29 pm * Is the patient Alert and Oriented? Yes * How many steps to enter\exit or inside your home? NONE * PCP DR. YEBOAH IN [place] * Pharmacy [facility] IN [place] * Preadmission Environment Home with Family * ADLs Partial Dependent * Partial ADLs (Assistance needed) Ambulation Medication Management Transfers * Equipment Bedside Commode Oxygen Rolling Walker Wound Vac * Other Equipment ROLLING WALKER WITH SEAT AND BRAKES HOME AND PORTABLE OXYGEN [employer] - MEDICAL EQUIPMENT PROVIDER * List name and contact numbers for known caregivers / representatives who currently or will assist patient after discharge: RHIANNA GARCIA, SPOUSE, , * Verbal permission to speak to the caregivers and representatives has been obtained from the patient. Yes * Community resources currently utilized Home Health Infusion Services * Please name any agencies selected above. [facility], [place] [facility], HAS MEDICATIONS AT HOME * Additional services required to return to the preadmission environment? No * Can the patient safely return to the preadmission environment? Yes * Has this patient been hospitalized within the prior 30 days at any hospital? Yes External Providers External Provider: OTHER-OTHER Next Contact Date: 07/24/2018 Service Request Date: Service Type: Resolution: Reviewer: Comments: Coverage Notice Reviewer: [id number] - Cesario Ha Notice Issued Date-Time: 07/23/2018 12:00 Notice Type: IM Discharge Notice Notice Delivered To: Family Member Relationship to Patient: Spouse Animal Scientist Name: RHIANNA GARCIA Delivery Method: HAND - Hand Delivered Niki Days: Prior Verbal Notification: Recipient Understood Notice: Yes Recipient Signature: Yes Med Rec Note Co-signed by Attending: Coverage Notice Comment: Last DP export: 07/23/18 4:37 Patient Name: ALBINA GARCIA Page 51785 at 0858 All edits/amendments must be made on the electronic document DICTATION DATE: 07/24/18 0858 TRAVOGRAPH OPERATOR: EDDA 07/24/18 0858 RPT#: [id number] DC DATE: STATUS: ADM IN [facility] [address] [place] [address] END OF REPORT
--- NOTE | ~2018-07-18 | CN ---
PATIENT NAME:ALBINA SOLOMON MEDICAL RECORD: [id number] : [birth year] LOCATION:D. D.2105 ADMIT DATE: 07/18/18 ACCOUNT: [id number] CONSULTING PHYSICIAN: KARLEY LERMA MD REFERRING PHYSICIAN: SHARDA WOOTEN MD DATE OF CONSULTATION: 07/24/2018 CONSULT REQUESTING PHYSICIAN: Sushant Sheppard MD REASON FOR CONSULTATION: Vent management status post pulmonary arrest. HISTORY OF PRESENT ILLNESS: Ms. Solomon is a 73-year-old -Chinese female, who has a history of aortic valve replacement in August. Since then, she has sternal infection with pseudomonas and also she went into renal failure after having 3 cardiopulmonary arrests and resuscitations. Also, she has bilateral pleural effusion. She has drainage of her fluid times 3 in the past. Now, the patient is orally intubated and sedated. The history was taken mainly by reviewing the patient's note and talking to the nursing staff and care and GLAZE MIXER. REVIEW OF SYSTEMS: The detail is not obtainable. PAST MEDICAL HISTORY: 1. Hypertension. 2. Coronary artery disease. 3. History of breast cancer. 4. History of bilateral pleural effusion. 5. Rjhwi-mn-daaupfd renal failure. PAST SURGICAL HISTORY: 1. She has appendectomy. 2. She has aortic valve replacement. 3. She has I&D of the sternum. 4. Cataract surgery. ALLERGIES: SHE IS ALLERGIC TO PENICILLIN, CEFACLOR, CEFAZOLIN, CIPROFLOXACIN, CODEINE, NSAIDS, SULFA, LEVOFLOXACIN, AND PHENOBARBITAL. MEDICATIONS: She is on cefepime IV. Her all other medications are reviewed. PERSONAL AND SOCIAL HISTORY: She is nonsmoker, nondrinker. FAMILY HISTORY: Noncontributory. PHYSICAL EXAMINATION: GENERAL: Now, the patient is orally intubated and sedated. VITAL SIGNS: The blood pressure is 127/69, pulse is 80, respiration is 15, temperature is 99.9, SpO2 is 100% on assist control mechanical ventilation, 100% oxygen. HEENT: Conjunctiva is pale. Sclera not icteric. NECK: Supple, no JVD. CHEST: There are bilateral crackles. No wheezing. HEART: Rate and rhythm regular. Normal sounds. No murmur. ABDOMEN: Soft. Bowel sounds present. No hepatosplenomegaly. RECTAL: Deferred. CONSULT REPORT [id number] ALBINA SOLOMON EXTREMITIES: No cyanosis, no clubbing, no pedal edema. SKIN: The skin is warm, normal turgor. CENTRAL NERVOUS SYSTEM: The patient is awake and alert. There are no obvious cranial nerve abnormalities. CHEST RADIOGRAPH: 1. The ET tube is in the right main bronchus. 2. Bibasilar airspace disease and bilateral pleural effusion, left worse than the right. LABORATORY DATA: CBC: The WBC is 9.8, hemoglobin 9.8, hematocrit 31.5, the platelet count 180. Chemistry: Sodium 137, potassium 5.6, BUN is 104, creatinine 5.2. ABG: The pH is 7.02, pCO2 is 98.4, pO2 is 59, bicarbonate is 25.9. IMPRESSION: 1. Acute hypoxic hypercapnic respiratory failure. 2. Respiratory arrest. 3. Respiratory acidosis secondary to above. 4. Pulmonary edema. 5. Bilateral pleural effusion, left worse than the right. 6. Acute and chronic renal failure. 7. Sternal osteomyelitis. Dr. Morgan follows. RECOMMENDATION: 1. We will continue mechanical ventilation, adjust the setting. 2. DVT and GI bleed prophylaxis. 3. Antibiotic per ID. 4. DVT and GI bleed prophylaxis. 5. We will obtain the CT scan of the chest when the patient gets stable. 6. Follow up labs and chest radiograph. Dr. Sheppard, thank you for involving me in the care of Ms. Solomon. TRANSINT:[id number] Voice Confirmation ID: [id number] DOCUMENT ID: [id number] KARLEY LERMA MD at 1339 CC: [id number] DICTATION DATE: 07/24/18 1412 FAMILY HELPER: 07/24/18 2303 ADM IN [facility] [address] [place] [address]
--- NOTE | ~2018-07-18 | EC ---
PATIENT:ALBINA GARCIA DATE OF SERVICE: 07/18/18 SEX: F MEDICAL RECORD: [id number] DATE OF : [birth year] LOCATION:D.M2 D.210 AGE OF PATIENT: 73 ADMISSION DATE: 07/18/18 REFERRING PHYSICIAN: INTERPRETING PHYSICIAN: KAREN BEAULIEU MD ECHOCARDIOGRAM REPORT ECHO CHARGES 4 ECHO COMPLETE Date: 07/20/18 CLINICAL DIAGNOSIS: H/O AVR ECHOCARDIOGRAPHIC MEASUREMENTS (adult normal given) AC root (d.<3.7cm) 3.4 cm LV Septum d (<1.2 cm> 1.6 cm Valve Excursion 1.5 cm LV Septum (systole) 2.3 cm Left Atria (s.<4.0cm> 5.4 cm LVPW d(<1.2cm) 1.5 cm RV (d.<2.3cm) 5.1 cm LVPW (sytole) 1.8 cm LV diastole(<5.6CM) 6.1 cm MV E-F(>70mm/sec) cm LV systole 4.5 cm LVOT Diameter 2.3 cm MV exc.(>10mm) cm Est.ejection fraction (50-75%) % DOPPLER: LVIT cm/sec A 145 cm/sec E 182 cm/sec LA cm/sec RVSP 54.0 mmHg LVOT 73.0 cm/sec AOP1/2T m/s Asc. Ao 229 cm/sec RVOT 49.0 cm/sec RA cm/sec PA 73.0 cm/sec AV Gradient Peak 21.0 mmHg AV Mean 9.7 mmHg AV Area 1.5 cm MV Gradient Peak 17.0 mmHg MV Mean 5.9 mmHg MV Area cm COMMENTS: Graphics Software Engineer: Katy CAGEOE Tank House Operator: 1 Dr. Beaulieu TAPE# PACS Pericardial Effusion N DATE OF SERVICE: 07/20/2018 FINDINGS: 1. Left ventricular chamber size is mildly dilated. Left ventricular systolic function is moderately reduced. Overall ejection fraction 30%. 2. Left atrium is enlarged at 4.5 cm. Right atrium and right ventricular chamber sizes are as well mildly dilated. 3. Valvular structures: Aortic valve is replaced with a tissue prosthesis with normal structure and function in this position. The valve area with tissue prosthesis calculates to 1.5 cm-squared with a gradient of 21 mm across this ECHOCARDIOGRAM REPORT [id number] GARCIA,ALBINA valve. 4. Doppler interrogation elsewise reveals qjilrdda-pj-rikhak mitral regurgitation, severe tricuspid regurgitation. No other valvular insufficiency or stenosis. Pulmonary systolic pressure is elevated, estimated 54 mmHg. 5. No evidence of pericardial effusion or left ventricular thrombus. TRANSINT:[id number] Voice Confirmation ID: [id number] DOCUMENT ID: [id number] KAREN BEAULIEU MD at 1704 CC: [id number] DICTATION DATE: 07/21/181125 JEWEL SUPERVISOR: 07/21/18 1152 ADM IN [facility] [address] [place] [address]
--- NOTE | ~2018-07-18 | MORECARE ---
CASE MANAGEMENT DISCHARGE SUMMARY PATIENT: ALBINA GARCIA UNIT: [id number] ADM DATE: 07/18/18 AGE: 73 : 43 SEX: F ROOM/BED: D.2315 AUTHOR: CARMEN,DOC PHYSICIAN: REFERRING PHYSICIAN: SHARDA WOOTEN MD DATE OF SERVICE: 08/05/18 Discharge Plan Patient Name: ALBINA GARCIA Facility: [facility]:[place] : 1945 Planned Disposition: Home with Home Health Anticipated Discharge Date: Discharge Date: Expected LOS: Initial Reviewer: [id number] Initial Review Date: 07/18/2018 Generated: 08/05/18 3:48 pm Comments DCP- Discharge Planning Updated by [email or web address]: Peyton Burrows on 07/27/18 5:[address] CM SPOKE WITH CRYSTAL WITH [facility] CALLED REQUESTING FOR NOTIFICATION OF DISCHARGE [phone] DIRECT NUMBER [phone].CM will continue to follow and assist as needed with discharge planning / needs. DCP- Discharge Planning Updated by [id number]: Cesario Ha on 07/24/18 9:[address] Patient Name: ALBINA GARCIA Encounter No: [id number] : 1945 Primary Insurance: MEDICARE A & B Anticipated DC Date: Planned Disposition: Home with Home Health External Planned Provider: [facility] DCP follow-up note: CM CALLED [facility] CENTRAL INTAKE LINE, , SPOKE TO TERESA WHO VERIFIED THEY ARE ACTIVE FOR WOUND VAC AND IV INFUSION SERVICES AT HOME; TERESA IS UNSURE IF PT IS RECEIVING HOME PHYSICAL THERAPY AND WILL NEED THAT ADDED TO AN ORDER FOR HOME HEALTH RESUMPTION. CM FAXED UPDATE TO [facility] AT [phone]. SPOUSE BELIEVES PATIENT MAY NEED A WHEELCHAIR TO ASSIST HIM WITH GETTING PT OUT OF HOME. PT REPORTS PLAN FOR HOME WITH [facility] FOR INFUSION AND WOUND VAC DRESSING CHANGES TO CONTINUE. CM TO FOLLOW AND ASSIST NEEDED. NOTIFY [facility] OF DISCHARGE AT [phone], FAX DISCHARGE INFORMATION TO [facility] AT [phone]. Canoe Inspector: Cesario Ha DCP- Discharge Planning Updated by [id number]: Cesario Ha on 07/23/18 4:[address] Patient Name: ALBINA GARCIA Admission Status: ER Accout number: [id number] Admission Date: 07-18-2018 : 1945 Admission Diagnosis:ACUTE KIDNEY FAILURE, UNSPECIFIED Attending: SHARDA WOOTEN Current LOS: 5 Anticipated DC Date: Planned Disposition: Home with Home Health Primary Insurance: MEDICARE A & B PLANNED EXTERNAL PROVIDER: [facility] OFFICE Discharge Planning Comments: CM MET WITH PT AND SPOUSE IN ROOM TO DISCUSS DISCHARGE PLANNING AND NEEDS. ALBINA GARCIA provided verbal consent to discuss current and ongoing needs with/in the presence of: SPOUSE, RHIANNA. PT REPORTS LIVING AT HOME INDEPENDENTLY WITH HER SPOUSE. PT HAS ROLLING WALKER WITH SEAT AND BRAKES, BEDSIDE COMMODE AND HOME / [facility]. PT HAS HOME HEALTH FOR INFUSION AND WOUND VAC CARE AND DRESSING CHANGES WITH [facility] [place]. CM DISCUSSED AVAILABILITY OF HOME HEALTH, REHAB SERVICES AND MEDICAL EQUIPMENT. PT DENIES DISCHARGE NEEDS AND REPORTS SHE IS GOING HOME WITH [facility] HOME HE[facility]. CM DISCUSSED PT'S DOCTOR AND THERAPY NOTES INDICATING PT BEING WEAK AND DISCUSSED AVAILABILITY OF REHAB SERVICES. PT STATES SHE IS GOING HOME AT DISCHARGE AN NO WHERE ELSE. PT'S SPOUSE REPORTS THEY MAY NEED A WHEELCHAIR TO GET PT OUT FOR LONG DISTANCES, SPOUSE WILL PICK PT UP FOR DISCHARGE HOME. IMPORTANT MESSAGE FROM MEDICARE PROVIDED AND EXPLAINED. SPOUSE BELIEVES PATIENT MAY NEED A WHEELCHAIR TO ASSIST HIM WITH GETTING PT OUT OF HOME. PT REPORTS PLAN FOR HOME WITH [facility] FOR INFUSION AND WOUND VAC DRESSING CHANGES TO CONTINUE. CM TO FOLLOW AND ASSIST NEEDED. Canoe Inspector: Cesario Ha DCPIA - Discharge Planning Initial Assessment Updated by [email or web address]: Cesario Ha on 07/23/18 5:29 pm * Is the patient Alert and Oriented? Yes * How many steps to enter\exit or inside your home? NONE * PCP DR. YEBOAH IN [place] * [facility]acy [facility] IN [place] * Preadmission Environment Home with Family * ADLs Partial Dependent * Partial ADLs (Assistance needed) Ambulation Medication Management Transfers * Equipment Bedside Commode Oxygen Rolling Walker Wound Vac * Other Equipment ROLLING WALKER WITH SEAT AND BRAKES HOME AND PORTABLE OXYGEN [facility] - MEDICAL EQUIPMENT PROVIDER * List name and contact numbers for known caregivers / representatives who currently or will assist patient after discharge: RHIANNA GARCIA, SPOUSE, , * Verbal permission to speak to the caregivers and representatives has been obtained from the patient. Yes * Community resources currently utilized Home Health Infusion Services * Please name any agencies selected above. [facility] [employer], HAS MEDICATIONS AT HOME * Additional services required to return to the preadmission environment? No * Can the patient safely return to the preadmission environment? Yes * Has this patient been hospitalized within the prior 30 days at any hospital? Yes Coverage Notice Reviewer: [id number] Pedro Luis Ha Notice Issued Date-Time: 07/23/2018 12:00 Notice Type: IM Discharge Notice Notice Delivered To: Family Member Relationship to Patient: Spouse Potato Chip Fryer Name: RHIANNA GARCIA Delivery Method: HAND - Hand Delivered Niki Days: Prior Verbal Notification: Recipient Understood Notice: Yes Recipient Signature: Yes Med Rec Note Co-signed by Attending: Coverage Notice Comment: Last DP export: 07/27/18 5:08 p Patient Name: ALBINA GARCIA Page 33656 at 1448 All edits/amendments must be made on the electronic document DICTATION DATE: 08/05/181447 SHOE STAINER: EDDA 08/05/181447 RPT#: [id number] DC DATE: STATUS: ADM IN [facility] [address] [place] [address] END OF REPORT
--- NOTE | ~2018-07-18 | MORECARE ---
CASE MANAGEMENT DISCHARGE SUMMARY PATIENT: ALBINA GARCIA UNIT: [id number] ADM DATE: 07/18/18 AGE: 73 : 44 SEX: F ROOM/BED: D.2100 AUTHOR: CARMENDOC PHYSICIAN: REFERRING PHYSICIAN: SHARDA WOOTEN MD DATE OF SERVICE: 08/07/18 Discharge Plan Patient Name: ALBINA GARCIA Facility: [facility]:[place] : 1945 Planned Disposition: Jail Facility Anticipated Discharge Date: Discharge Date: Expected LOS: Initial Reviewer: [id number] Initial Review Date: 07/18/2018 Generated: 08/07/18 5:23 pm Comments DCP- Discharge Planning Updated by [email or web address]: Cesario Ha on 08/06/18 2:[address] Patient Name: ALBINA GARCIA Encounter No: [id number] : 1945 Primary Insurance: MEDICARE A & B Anticipated DC Date: Planned Disposition: Jail Facility External Planned Provider: TO BE DETERMINED DCP follow-up note: CM MET WITH PT AND SON IN ROOM TO DISCUSS DISCHARGE PLANNING AND NEEDS. PT'S SON INFORMED CM THAT PT'S SPOUSE ALONG WITH HE WILL BE ASSISTING WITH DISCHARGE PLANNING, THEY ARE CONSIDERING [facility] FOR REHAB AND BOTH WANT TO BE PRESENT TO DISCUSS ISSUES. PT'S SPOUSE IS OUT OF TOWN TODAY AND WILL BE BACK SOMETIME TOMORROW AND WILL NOTIFY CM WHEN THEY ARRIVE AT HOSPITAL TO DISCUSS DISCHARGE PLANNING. CM PROVIDED HOSPITAL COLLEGE SPECIALIST AND CM CONTACT INFORMATION. CM WAITING FAMILY ARRIVAL 08-07-18, TO DISCUSS [facility] REHAB PLACEMENT OPTIONS. Cesario Ha, SAVANNAH MANAGEMENT DCP- Discharge Planning Updated by [id number]: Peyton Burrows on 07/27/18 5:[address] CM SPOKE WITH DAJUAN WITH [facility] CALLED REQUESTING FOR NOTIFICATION OF DISCHARGE [phone] DIRECT NUMBER [phone].CM will continue to follow and assist as needed with discharge planning / needs. DCP- Discharge Planning Updated by [id number]: Cesario Ha on 07/24/18 9:[address] Patient Name: ALBINA GARCIA Encounter No: [id number] : 1945 Primary Insurance: MEDICARE A & B Anticipated DC Date: Planned Disposition: Home with Home Health External Planned Provider: [facility] DCP follow-up note: CM CALLED [facility] CENTRAL INTAKE LINE, , SPOKE TO TERESA WHO VERIFIED THEY ARE ACTIVE FOR WOUND VAC AND IV INFUSION SERVICES AT HOME; [facility] IS UNSURE IF PT IS RECEIVING HOME PHYSICAL THERAPY AND WILL NEED THAT ADDED TO AN ORDER FOR HOME HEALTH RESUMPTION. CM FAXED UPDATE TO [facility] AT [phone]. SPOUSE BELIEVES PATIENT MAY NEED A WHEELCHAIR TO ASSIST HIM WITH GETTING PT OUT OF HOME. PT REPORTS PLAN FOR HOME WITH [facility] FOR INFUSION AND WOUND VAC DRESSING CHANGES TO CONTINUE. CM TO FOLLOW AND ASSIST NEEDED. NOTIFY [facility] OF DISCHARGE AT [phone], FAX DISCHARGE INFORMATION TO [facility] AT [phone]. Mentally Impaired Teacher: Cesario Ha DCP- Discharge Planning Updated by [id number]: Cesario Ha on 07/23/18 4:[address] Patient Name: ALBINA GARCIA Admission Status: ER Accout number: [id number] Admission Date: 07-18-2018 : 1945 Admission Diagnosis:ACUTE KIDNEY FAILURE, UNSPECIFIED Attending: SHARDA WOOTEN Current LOS: 5 Anticipated DC Date: Planned Disposition: Home with Home Health Primary Insurance: MEDICARE A & B PLANNED EXTERNAL PROVIDER: [facility] OFFICE Discharge Planning Comments: CM MET WITH PT AND SPOUSE IN ROOM TO DISCUSS DISCHARGE PLANNING AND NEEDS. ALBINA GARCIA provided verbal consent to discuss current and ongoing needs with/in the presence of: SPOUSE, RHIANNA. PT REPORTS LIVING AT HOME INDEPENDENTLY WITH HER SPOUSE. PT HAS ROLLING WALKER WITH SEAT AND BRAKES, BEDSIDE COMMODE AND [facility]. PT HAS HOME HEALTH FOR INFUSION AND WOUND VAC CARE AND DRESSING CHANGES WITH [facility] OUT OF [place]. CM DISCUSSED AVAILABILITY OF HOME HEALTH, REHAB SERVICES AND MEDICAL EQUIPMENT. PT DENIES DISCHARGE NEEDS AND REPORTS SHE IS GOING HOME WITH CONTINUED HOME HEALTH. CM DISCUSSED PT'S DOCTOR AND THERAPY NOTES INDICATING PT BEING WEAK AND DISCUSSED AVAILABILITY OF REHAB SERVICES. PT STATES SHE IS GOING HOME AT DISCHARGE AN NO WHERE ELSE. PT'S SPOUSE REPORTS THEY MAY NEED A WHEELCHAIR TO GET PT OUT FOR LONG DISTANCES, SPOUSE WILL PICK PT UP FOR DISCHARGE HOME. IMPORTANT MESSAGE FROM MEDICARE PROVIDED AND EXPLAINED. SPOUSE BELIEVES PATIENT MAY NEED A WHEELCHAIR TO ASSIST HIM WITH GETTING PT OUT OF HOME. [facility] AND WOUND VAC DRESSING CHANGES TO CONTINUE. CM TO FOLLOW AND ASSIST NEEDED. Mentally Impaired Teacher: Cesario Ha DCPIA - Discharge Planning Initial Assessment Updated by [id number]: Cesario Ha on 07/23/18 5:29 pm * Is the patient Alert and Oriented? Yes * How many steps to enter\exit or inside your home? NONE * PCP DR. YEBOAH IN [place] * Pharmacy [facility] IN [place] * Preadmission Environment Home with Family * ADLs Partial Dependent * Partial ADLs (Assistance needed) Ambulation Medication Management Transfers * Equipment Bedside Commode Oxygen Rolling Walker Wound Vac * Other Equipment ROLLING WALKER WITH SEAT AND BRAKES HOME AND PORTABLE OXYGEN [facility] - MEDICAL EQUIPMENT PROVIDER * List name and contact numbers for known caregivers / representatives who currently or will assist patient after discharge: RHIANNA GARCIA, SPOUSE, , * Verbal permission to speak to the caregivers and representatives has been obtained from the patient. Yes * Community resources currently utilized Home Health Infusion Services * Please name any agencies selected above. [facility], [employer], HAS MEDICATIONS AT HOME * Additional services required to return to the preadmission environment? No * Can the patient safely return to the preadmission environment? Yes * Has this patient been hospitalized within the prior 30 days at any hospital? Yes Coverage Notice Reviewer: [id number] - Cesario Ha Notice Issued Date-Time: 07/23/2018 12:00 Notice Type: IM Discharge Notice Notice Delivered To: Family Member Relationship to Patient: Spouse Triple Air Valve Tester Name: RHIANNA GARCIA Delivery Method: HAND - Hand Delivered Niki Days: Prior Verbal Notification: Recipient Understood Notice: Yes Recipient Signature: Yes Med Rec Note Co-signed by Attending: Coverage Notice Comment: Last DP export: 08/06/18 2:04 Patient Name: ALBINA GARCIA Page 38264 at 1624 All edits/amendments must be made on the electronic document DICTATION DATE: 08/07/18 1623 FUNCTIONAL TESTER TYPEWRITERS: DM 08/07/18 1623 RPT#: [id number] DC DATE: STATUS: ADM IN [facility] [address] [place] [address] END OF REPORT
--- NOTE | ~2018-07-18 | MORECARE ---
CASE MANAGEMENT DISCHARGE SUMMARY PATIENT: ALBINA GARCIA UNIT: [id number] ADM DATE: 07/18/18 AGE: 73 : 44 SEX: F ROOM/BED: D.2109 AUTHOR: CARMENDOC PHYSICIAN: REFERRING PHYSICIAN: SHARDA WOOTEN MD DATE OF SERVICE: 08/06/18 Discharge Plan Patient Name: ALBINA GARCIA Facility: [facility]:[place] : 1945 Planned Disposition: Snf Facility Anticipated Discharge Date: Discharge Date: Expected LOS: Initial Reviewer: [id number] Initial Review Date: 07/18/2018 Generated: 08/06/18 4:03 pm Comments DCP- Discharge Planning Updated by [email or web address]: Cesario Ha on 08/06/18 2:[address] Patient Name: ALBINA GARCIA Encounter No: [id number] : 1945 Primary Insurance: MEDICARE A & B Anticipated DC Date: Planned Disposition: Snf Facility External Planned Provider: TO BE DETERMINED DCP follow-up note: CM MET WITH PT AND SON IN ROOM TO DISCUSS DISCHARGE PLANNING AND NEEDS. PT'S SON INFORMED CM THAT PT'S SPOUSE ALONG WITH HE WILL BE ASSISTING WITH DISCHARGE PLANNING, THEY ARE CONSIDERING SNF FOR REHAB AND BOTH WANT TO BE PRESENT TO DISCUSS ISSUES. PT'S SPOUSE IS OUT OF TOWN TODAY AND WILL BE BACK SOMETIME TOMORROW AND WILL NOTIFY CM WHEN THEY ARRIVE AT HOSPITAL TO DISCUSS DISCHARGE PLANNING. CM PROVIDED HOSPITAL LAND SURVEYOR MANAGER AND CM CONTACT INFORMATION. CM WAITING FAMILY ARRIVAL 08-07-18, TO DISCUSS SNF REHAB PLACEMENT OPTIONS. Cesario Ha, CASE MANAGEMENT DCP- Discharge Planning Updated by [email or web address]: ePyton Burrows on 07/27/18 5:[address] CM SPOKE WITH DAJUAN WITH [facility] CALLED REQUESTING FOR NOTIFICATION OF DISCHARGE [phone] DIRECT NUMBER [phone].CM will continue to follow and assist as needed with discharge planning / needs. DCP- Discharge Planning Updated by [id number]: Cesario Ha on 07/24/18 9:[address] Patient Name: ALBINA GARCIA Encounter No: [id number] : 1945 Primary Insurance: MEDICARE A & B Anticipated DC Date: Planned Disposition: Home with Home Health External Planned Provider: [facility] DCP follow-up note: CM CALLED [facility] CENTRAL INTAKE LINE, , SPOKE TO TERESA WHO VERIFIED THEY ARE ACTIVE FOR WOUND VAC AND IV INFUSION SERVICES AT HOME; [facility] IS UNSURE IF PT IS RECEIVING HOME PHYSICAL THERAPY AND WILL NEED THAT ADDED TO AN ORDER FOR HOME HEALTH RESUMPTION. CM FAXED UPDATE TO [facility] AT [phone]. SPOUSE BELIEVES PATIENT MAY NEED A WHEELCHAIR TO ASSIST HIM WITH GETTING PT OUT OF HOME. PT REPORTS PLAN FOR HOME WITH [facility] FOR INFUSION AND WOUND VAC DRESSING CHANGES TO CONTINUE. CM TO FOLLOW AND ASSIST NEEDED. NOTIFY [facility] OF DISCHARGE AT [phone], FAX DISCHARGE INFORMATION TO [facility] AT [phone]. Clip Wrapper: Cesario Ha DCP- Discharge Planning Updated by [id number]: Cesario Ha on 07/23/18 4:[address] Patient Name: ALBINA GARCIA Admission Status: ER Accout number: [id number] Admission Date: 07-18-2018 : 1945 Admission Diagnosis:ACUTE KIDNEY FAILURE, UNSPECIFIED Attending: SHARDA WOOTEN Current LOS: 5 Anticipated DC Date: Planned Disposition: Home with Home Health Primary Insurance: MEDICARE A & B PLANNED EXTERNAL PROVIDER: [facility] OFFICE Discharge Planning Comments: CM MET WITH PT AND SPOUSE IN ROOM TO DISCUSS DISCHARGE PLANNING AND NEEDS. ALBINA GARCIA provided verbal consent to discuss current and ongoing needs with/in the presence of: SPOUSE, RHIANNA. PT REPORTS LIVING AT HOME INDEPENDENTLY WITH HER SPOUSE. PT HAS ROLLING WALKER WITH SEAT AND BRAKES, BEDSIDE COMMODE AND HOME / PORTABLE OXYGEN FROM [facility]. PT HAS HOME HEALTH FOR INFUSION AND WOUND VAC CARE AND DRESSING CHANGES WITH [facility] OUT OF [place]. CM DISCUSSED AVAILABILITY OF HOME HEALTH, REHAB SERVICES AND MEDICAL EQUIPMENT. PT DENIES DISCHARGE NEEDS AND REPORTS SHE IS GOING HOME WITH CONTINUED HOME HEALTH. CM DISCUSSED PT'S DOCTOR AND THERAPY NOTES INDICATING PT BEING WEAK AND DISCUSSED AVAILABILITY OF REHAB SERVICES. PT STATES SHE IS GOING HOME AT DISCHARGE AN NO WHERE ELSE. PT'S SPOUSE REPORTS THEY MAY NEED A WHEELCHAIR TO GET PT OUT FOR LONG DISTANCES, SPOUSE WILL PICK PT UP FOR DISCHARGE HOME. IMPORTANT MESSAGE FROM MEDICARE PROVIDED AND EXPLAINED. SPOUSE BELIEVES PATIENT MAY NEED A WHEELCHAIR TO ASSIST HIM WITH GETTING PT OUT OF HOME. PT REPORTS PLAN FOR HOME WITH [facility] FOR [facility]ION AND WOUND VAC DRESSING CHANGES TO CONTINUE. CM TO FOLLOW AND ASSIST NEEDED. Clip Wrapper: Cesario Ha DCPIA - Discharge Planning Initial Assessment Updated by [email or web address]: Cesario Ha on 07/23/18 5:29 pm * Is the patient Alert and Oriented? Yes * How many steps to enter\exit or inside your home? NONE * PCP DR. YEBOAH IN [place] * Pharmacy [facility] IN [place] * Preadmission Environment Home with Family * ADLs Partial Dependent * Partial ADLs (Assistance needed) Ambulation Medication Management Transfers * Equipment Bedside Commode Oxygen Rolling Walker Wound Vac * Other Equipment ROLLING WALKER WITH SEAT AND BRAKES HOME AND PORTABLE OXYGEN [facility] - MEDICAL EQUIPMENT PROVIDER * List name and contact numbers for known caregivers / representatives who currently or will assist patient after discharge: RHIANNA GARCIA, SPOUSE, , * Verbal permission to speak to the caregivers and representatives has been obtained from the patient. Yes * Community resources currently utilized Home Health Infusion Services * Please name any agencies selected above. [facility], [employer], HAS MEDICATIONS AT HOME * Additional services required to return to the preadmission environment? No * Can the patient safely return to the preadmission environment? Yes * Has this patient been hospitalized within the prior 30 days at any hospital? Yes Coverage Notice Reviewer: [id number] - Cesario Ha Notice Issued Date-Time: 07/23/2018 12:00 Notice Type: IM Discharge Notice Notice Delivered To: Family Member Relationship to Patient: Spouse Dicer Operator Name: RHIANNA GARCIA Delivery Method: HAND - Hand Delivered Niki Days: Prior Verbal Notification: Recipient Understood Notice: Yes Recipient Signature: Yes Med Rec Note Co-signed by Attending: Coverage Notice Comment: Last DP export: 08/05/18 1:48 Patient Name: ALBINA GARCIA Page 11973 at 1504 All edits/amendments must be made on the electronic document DICTATION DATE: 08/06/18 1503 BARGE CAPTAIN: DM 08/06/18 1503 RPT#: [id number] DC DATE: STATUS: ADM IN [facility] [address] [place] [address] END OF REPORT
--- NOTE | ~2018-07-18 | MORECARE ---
CASE MANAGEMENT DISCHARGE SUMMARY PATIENT: ALBINA GARCIA UNIT: [id number] ADM DATE: 07/18/18 AGE: 73 : 43 SEX: F ROOM/BED: D.0754 AUTHOR: CARMEN,DOC PHYSICIAN: REFERRING PHYSICIAN: SHARDA WOOTEN MD DATE OF SERVICE: 08/11/18 Discharge Plan Patient Name: ALBINA GARCIA Facility: [facility]:[place] : 1945 Planned Disposition: Intermediate Facility Anticipated Discharge Date: Discharge Date: Expected LOS: Initial Reviewer: [id number] Initial Review Date: 07/18/2018 Generated: 08/11/18 12:25 pm Comments DCP- Discharge Planning Updated by CASPER: Nitish Ferris on 08/11/18 10:[address] Patient Name: ALBINA GARCIA Encounter No: [id number] : 1945 Primary Insurance: MEDICARE A & B Anticipated DC Date: Planned Disposition: Intermediate Facility External Planned Provider: [facility] OR [facility] N[facility]SING [facility] RE[facility], MEDICARE REHAB BED DCP follow-up note: CM CALLED [facility], [phone], SPOKE TO SANDRA WHO REPORTS THEY ARE NOT CURRENTLY ACCEPTING ANY MORE DIALYSIS PATIENTS. CM FAXED REFERRAL UPDATE TO [facility], . CM FAXED REFERRAL UPDATE TO [facility], , [facility] HAS REFUSED PT. CM WAITING ADMISSION DETERMINATIONS FROM [facility] [place]. IF ACCEPTED, WILL NEED TO ARRANGE OUTPATIENT DIALYSIS UNIT. NITISH FERRIS, CASE MANAGEMENT Appended by Nitish Ferris on 08/11/2018 11:19 APPLICATION DEVELOPMENT INTERN: CM RECEIVED CALL FROM TATYANA OF [facility], WHO WILL COME TO HOSPITAL TODAY TO EVAULATE PT FOR REHAB ADMISSION. THE FACILITY PREFERS Friday DIALYSIS SCHEDULE BUT MAY BE ABLE TO ACCOMODATE Friday SCHEDULE IF NECESSARY. TATYANA LEFT CONTACT NUMBER OF [phone]. EUN OF [facility] NOTIFIED. [facility] HAS REFUSED PT. CM WAITING ADMISSION DETERMINATIONS FROM [facility] [place]. IF ACCEPTED, CM WILL NEED TO ARRANGE OUTPATIENT DIALYSIS UNIT. SAVANNAH TORRES MANAGEMENT DCP- Discharge Planning Updated by [id number]: Nitish Ferris on 08/07/18 3:[address] Patient Name: ALBINA GARCIA Encounter No: [id number] : 1945 Primary Insurance: MEDICARE A & B Anticipated DC Date: Planned Disposition: Intermediate Facility External Planned Provider: [facility], MEDICARE REHAB BED DCP follow-up note: CM MET WITH PT, SPOUSE AND SON IN ROOM TO DISCUSS DISCHARGE PLANNING AND NEEDS. PT WOULD ONLY ANSWER DIRECT QUESTIONS AND DID NOT ACTIVELY PARTICIPATE IN DISCHARGE PLANNING. PT'S SPOUSE AND SON ARE REQUESTING REHAB IN [place] AT [facility], [facility] OR [facility]. CHOICE SIGNED. CM NOTIFIED EUN RICHARD OF [facility] OF DISCHARGE PLAN. CM CALLED [facility], [phone], SPOKE TO SANDRA WHO REPORTS THEY ARE NOT CURRENTLY ACCEPTING ANY MORE DIALYSIS PATIENTS. CM CALLED [facility], , LEFT MESSAGE FOR ONEAL GOEMZ OF ADMISSIONS AND FAXED REFERRAL TO [phone]. THEY CAN ACCOMODATE DIALYSIS PATIENTS IN FACILITY. CM CALLED [facility], , SPOKE TO ALBINA, FAXED REFERRAL TO [phone], ATTENTION ADMISSIONS. THEY CAN ACCOMODATE DIALYSIS PATIENTS IN FACILITY. [facility] WILL NOT ACCEPT. CM WAITING ADMISSION DETERMINATIONS FROM [facility] [place]. IF ACCEPTED, CM WILL NEED TO ARRANGE OUTPATIENT DIALYSIS UNIT. SAVANNAH TORRES DCP- Discharge Planning Updated by [id number]: Nitish Ferris on 08/06/18 2:[address] Patient Name: ALBINA GARCIA Encounter No: [id number] : 1945 Primary Insurance: MEDICARE A & B Anticipated DC Date: Planned Disposition: Intermediate Facility External Planned Provider: TO BE DETERMINED DCP follow-up note: CM MET WITH PT AND SON IN ROOM TO DISCUSS DISCHARGE PLANNING AND NEEDS. PT'S SON INFORMED CM THAT PT'S SPOUSE ALONG WITH HE WILL BE ASSISTING WITH DISCHARGE PLANNING, THEY ARE CONSIDERING DETENTION FOR REHAB AND BOTH WANT TO BE PRESENT TO DISCUSS ISSUES. PT'S SPOUSE IS OUT OF TOWN TODAY AND WILL BE BACK SOMETIME TOMORROW AND WILL NOTIFY CM WHEN THEY ARRIVE AT HOSPITAL TO DISCUSS DISCHARGE PLANNING. CM PROVIDED HOSPITAL BOMBSIGHT SPECIALIST AND CM CONTACT INFORMATION. CM WAITING FAMILY ARRIVAL 08-07-18, TO DISCUSS DETENTION REHAB PLACEMENT OPTIONS. Nitish Ferris, CASE MANAGEMENT DCP- Discharge Planning Updated by [id number]: Peyton Burrows on 07/27/18 5:[address] CM SPOKE WITH CRYSTAL WITH [facility] [place] CALLED REQUESTING FOR NOTIFICATION OF DISCHARGE [phone] DIRECT NUMBER [phone].CM will continue to follow and assist as needed with discharge planning / needs. DCP- Discharge Planning Updated by [id number]: Nitish Ferris on 07/24/18 9:[address] Patient Name: ALBINA GARCIA Encounter No: [id number] : 1945 Primary Insurance: MEDICARE A & B Anticipated DC Date: Planned Disposition: Home with Home Health External Planned Provider: [facility] DCP follow-up note: CM CALLED [facility], , SPOKE TO TERESA WHO VERIFIED THEY ARE ACTIVE FOR WOUND VAC AND IV INFUSION SERVICES AT HOME; TERESA IS UNSURE IF PT IS RECEIVING HOME PHYSICAL THERAPY AND WILL NEED THAT ADDED TO AN ORDER FOR HOME HEALTH RESUMPTION. CM FAXED UPDATE TO [facility] AT [phone]. SPOUSE BELIEVES PATIENT MAY NEED A WHEELCHAIR TO ASSIST HIM WITH GETTING PT OUT OF HOME. PT REPORTS PLAN FOR HOME WITH [facility] FOR INFUSION AND WOUND VAC DRESSING CHANGES TO CONTINUE. CM TO FOLLOW AND ASSIST NEEDED. NOTIFY [facility] OF DISCHARGE AT [phone], FAX DISCHARGE INFORMATION TO [facility] AT [phone]. Manufacturing Mechanic: Nitish Ferris DCP- Discharge Planning Updated by [id number]: Nitish Ferris on 07/23/18 4:[address] Patient Name: ALBINA GARCIA Admission Status: ER Accout number: [id number] Admission Date: 07-18-2018 : 1945 Admission Diagnosis:ACUTE KIDNEY FAILURE, UNSPECIFIED Attending: SHARDA WOOTEN Current LOS: 5 Anticipated DC Date: Planned Disposition: Home with Home Health Primary Insurance: MEDICARE A & B PLANNED EXTERNAL PROVIDER: [facility] Discharge Planning Comments: CM MET WITH PT AND SPOUSE IN ROOM TO DISCUSS DISCHARGE PLANNING AND NEEDS. ALBINA GARCIA provided verbal consent to discuss current and ongoing needs with/in the presence of: SPOUSE, RHIANNA. PT REPORTS LIVING AT HOME INDEPENDENTLY WITH HER SPOUSE. PT HAS ROLLING WALKER WITH SEAT AND BRAKES, BEDSIDE COMMODE AND HOME / PORTABLE OXYGEN FROM [facility]. PT HAS HOME HEALTH FOR INFUSION AND WOUND VAC CARE AND DRESSING CHANGES WITH [facility] OUT OF [place]. CM DISCUSSED AVAILABILITY OF HOME HEALTH, REHAB SERVICES AND MEDICAL EQUIPMENT. PT DENIES DISCHARGE NEEDS AND REPORTS SHE IS GOING HOME WITH CONTINUED HOME HEALTH. CM DISCUSSED PT'S DOCTOR AND THERAPY NOTES INDICATING PT BEING WEAK AND DISCUSSED AVAILABILITY OF REHAB SERVICES. PT STATES SHE IS GOING HOME AT DISCHARGE AN NO WHERE ELSE. PT'S SPOUSE REPORTS THEY MAY NEED A WHEELCHAIR TO GET PT OUT FOR LONG DISTANCES, SPOUSE WILL PICK PT UP FOR DISCHARGE HOME. IMPORTANT MESSAGE FROM MEDICARE PROVIDED AND EXPLAINED. SPOUSE BELIEVES PATIENT MAY NEED A WHEELCHAIR TO ASSIST HIM WITH GETTING PT OUT OF HOME. PT REPORTS PLAN FOR HOME WITH [facility] FOR INFUSION AND WOUND VAC DRESSING CHANGES TO CONTINUE. CM TO FOLLOW AND ASSIST NEEDED. Manufacturing Mechanic: Nitish Ferris DCA - Discharge Planning Initial Assessment Updated by [id number]: Nitish Ferris on 07/23/18 5:29 pm * Is the patient Alert and Oriented? Yes * How many steps to enter\exit or inside your home? NONE * PCP DR. YEBOAH IN [place] * Pharmacy [facility] [place] * Preadmission Environment Home with Family * ADLs Partial Dependent * Partial ADLs (Assistance needed) Ambulation Medication Management Transfers * Equipment Bedside Commode Oxygen Rolling Walker Wound Vac * Other Equipment ROLLING WALKER WITH SEAT AND BRAKES HOME AND PORTABLE OXYGEN [facility] - MEDICAL EQUIPMENT PROVIDER * List name and contact numbers for known caregivers / representatives who currently or will assist patient after discharge: RHIANNA GARCIA, SPOUSE, , * Verbal permission to speak to the caregivers and representatives has been obtained from the patient. Yes * Community resources currently utilized Home Health Infusion Services * Please name any agencies selected above. [facility], [place] [facility], [facility] [employer] [facility] [employer], HAS MEDICATIONS AT HOME * Additional services required to return to the preadmission environment? No * Can the patient safely return to the preadmission environment? Yes * Has this patient been hospitalized within the prior 30 days at any hospital? Yes Coverage Notice Reviewer: [id number] Ferris Notice Issued Date-Time: 07/23/2018 12:00 Notice Type: IM Discharge Notice Notice Delivered To: Family Member Relationship to Patient: Spouse Center Medical Specialist Name: RHIANNA GARCIA Delivery Method: HAND - Hand Delivered Niki Days: Prior Verbal Notification: Recipient Understood Notice: Yes Recipient Signature: Yes Med Rec Note Co-signed by Attending: Coverage Notice Comment: Reviewer: CASPER Ferris Notice Issued Date-Time: 08/07/2018 11:45 Notice Type: Patient Choice Letter Notice Delivered To: Family Member Relationship to Patient: Spouse Center Medical Specialist Name: RHIANNA GARCIA Delivery Method: HAND - Hand Delivered Niki Days: Prior Verbal Notification: Recipient Understood Notice: Yes Recipient Signature: Yes Med Rec Note Co-signed by Attending: Coverage Notice Comment: [facility] DP export: 08/11/18 7:23 Patient Name: ALBINA GARCIA Page [id number] at 1125 All edits/amendments must be made on the electronic document DICTATION DATE: 08/11/18 112 TELECOM COORDINATOR: EDDA 08/11/18 1124 RPT#: [id number] DC DATE: STATUS: ADM IN [facility] [address] [place] [address] END OF REPORT
--- NOTE | ~2018-07-18 | CN ---
PATIENT NAME:ALBINA GARCIA MEDICAL RECORD: [id number] : [birth year] LOCATION:. D.2105 ADMIT DATE: 07/18/18 ACCOUNT: [id number] CONSULTING PHYSICIAN: VALERIA PRATHER MD REFERRING PHYSICIAN: SHARDA WOOTEN MD DATE OF CONSULTATION: 08/14/2018 Psychiatric Consultation IDENTIFYING DATA: The patient is 73 years old and she is admitted to the hospital secondary to a wound infection in her chest. CHIEF COMPLAINT: None. HISTORY OF PRESENT ILLNESS: The patient is a very unfortunate woman, who has a complex and extensive medical history. In short, she has had bypass grafting in the past along with some valvular insufficiencies. She recently developed an infection in her chest and was hospitalized here. She actually has undergone several code assessments and currently is nonresponsive. PAST MEDICAL HISTORY: Includes hypertension, coronary artery disease, diabetes and now renal insufficiency. She is actually on dialysis. The patient's son who is very knowledgeable and can provide accurate longitudinal history in a reliable manner is fortunately with me. GENERAL: The patient does not know her name. She is awake. She is following and tracking through the room. Responds by turning her head or eyes to look at me when I call her name or her son does, but she cannot answer even the simplest question such as what is her name or even yes and no questions. She cannot follow simple commands such as close your eyes, open your mouth, raise your hand. There is no interaction. The son was concerned because she will not eat or drink adequately. He also is concerned that hopefully there is something that can be done to assist with this. He gives a very accurate longitudinal history and it sounds as though she has had some cognitive slippage prior to this acute hospitalization, but clearly there are numerous toxic, metabolic, hypoxic, and embolic events that I could predict would be associated with this current condition. Mental status examination is not possible. It is clear that she has had a global injury of some sort. ASSESSMENT: Dementia, type uncertain, probably global injury of some sort on top of a preexisting early dementia. PLAN: At this time, I would recommend neuro imaging and an EEG along with neurology consult. Given her very extensive medical history and her current condition, it appears clear that her prognosis is not very good. I am not sure how she could participate in a rehab setting since she cannot follow any directions and the son says she has been this way. It is unlikely that she is going to show significant improvement and I do not see any acute psychiatric needs that I could attend to. I agree with the use of Geodon for its sedating and thought organizing properties, but I think it is used primarily would be behavioral at this point. Obviously, if adequate hydration and nutrition cannot be given to this woman, her long-term prognosis is exceedingly poor and I think it is time for someone who knows this family or case better, to discuss with the hospice care. There is no reason to transfer her to the geropsych unit. She CONSULT REPORT [id number] ALBINA GARCIA could not tolerate being in the day room. She cannot follow any instructions and I do not see any behaviors or symptoms that I would have any reasonable possibility of treating. TRANSINT:[id number] Voice Confirmation ID: [id number] DOCUMENT ID: [id number] VALERIA PRATHER MD at 0846 CC: [id number] DICTATION DATE: 08/14/18 1444 GEAR MACHINE OPERATOR GENERAL: 08/14/182037 ADM IN [facility] [address] [place] [address]
--- NOTE | ~2018-07-18 | MORECARE ---
CASE MANAGEMENT DISCHARGE SUMMARY PATIENT: ALBINA GARCIA UNIT: [id number] ADM DATE: 07/18/18 AGE: 73 : 43 SEX: F ROOM/BED: D.9240 AUTHOR: CARMEN,DOC PHYSICIAN: REFERRING PHYSICIAN: SHARDA WOOTEN MD DATE OF SERVICE: 07/23/18 Discharge Plan Patient Name: ALBINA GARCIA Facility: [facility]:[place] : 1945 Planned Disposition: Home with Home Health Anticipated Discharge Date: Discharge Date: Expected LOS: Initial Reviewer: [id number] Initial Review Date: 07/18/2018 Generated: 07/23/18 6:37 pm Comments DCP- Discharge Planning Updated by [id number]: Cesario Ha on 07/23/18 4:[address] Patient Name: ALBINA GARCIA Admission Status: ER Accout number: [id number] Admission Date: 07-18-2018 : 1945 Admission Diagnosis:ACUTE KIDNEY FAILURE, UNSPECIFIED Attending: SHARDA WOOTEN Current LOS: 5 Anticipated DC Date: Planned Disposition: Home with Home Health Primary Insurance: MEDICARE A & B PLANNED EXTERNAL PROVIDER: [facility] OFFICE Discharge Planning Comments: CM MET WITH PT AND SPOUSE IN ROOM TO DISCUSS DISCHARGE PLANNING AND NEEDS. ALBINA GARCIA provided verbal consent to discuss current and ongoing needs with/in the presence of: SPOUSE, RHIANNA. PT REPORTS LIVING AT HOME INDEPENDENTLY WITH HER SPOUSE. PT HAS ROLLING WALKER WITH SEAT AND BRAKES, BEDSIDE COMMODE AND HOME / PORTABLE OXYGEN FROM [facility]. PT HAS HOME HEALTH FOR INFUSION AND WOUND VAC CARE AND DRESSING CHANGES WITH [facility] OUT OF [place]. CM DISCUSSED AVAILABILITY OF HOME HEALTH, REHAB SERVICES AND MEDICAL EQUIPMENT. PT DENIES DISCHARGE NEEDS AND REPORTS SHE IS GOING HOME WITH CONTINUED HOME HEALTH. CM DISCUSSED PT'S DOCTOR AND THERAPY NOTES INDICATING PT BEING WEAK AND DISCUSSED AVAILABILITY OF REHAB SERVICES. PT STATES SHE IS GOING HOME AT DISCHARGE AN NO WHERE ELSE. PT'S SPOUSE REPORTS THEY MAY NEED A WHEELCHAIR TO GET PT OUT FOR LONG DISTANCES, SPOUSE WILL PICK PT UP FOR DISCHARGE HOME. IMPORTANT MESSAGE FROM MEDICARE PROVIDED AND EXPLAINED. SPOUSE BELIEVES PATIENT MAY NEED A WHEELCHAIR TO ASSIST HIM WITH GETTING PT OUT OF HOME. PT REPORTS PLAN FOR HOME WITH [facility] FOR INFUSION AND WOUND VAC DRESSING CHANGES TO CONTINUE. CM TO FOLLOW AND ASSIST NEEDED. Securities Clerk: Cesario Ha DCPIA - Discharge Planning Initial Assessment Updated by [id number]: Cesario Ha on 07/23/18 5:29 pm * Is the patient Alert and Oriented? Yes * How many steps to enter\exit or inside your home? NONE * PCP DR. YEBOAH IN [place] * Pharmacy [facility] IN [place] * Preadmission Environment Home with Family * ADLs Partial Dependent * Partial ADLs (Assistance needed) Ambulation Medication Management Transfers * Equipment Bedside Commode Oxygen Rolling Walker Wound Vac * Other Equipment ROLLING WALKER WITH SEAT AND BRAKES HOME AND PORTABLE OXYGEN [facility] - MEDICAL EQUIPMENT PROVIDER * List name and contact numbers for known caregivers / representatives who currently or will assist patient after discharge: RHIANNA GARCIA, SPOUSE, , * Verbal permission to speak to the caregivers and representatives has been obtained from the patient. Yes * Community resources currently utilized Home Health Infusion Services * Please name any agencies selected above. [facility] [employer], [place] [facility], HAS MEDICATIONS AT HOME * Additional services required to return to the preadmission environment? No * Can the patient safely return to the preadmission environment? Yes * Has this patient been hospitalized within the prior 30 days at any hospital? Yes Coverage Notice Reviewer: [id number] - Cesario Ha Notice Issued Date-Time: 07/23/2018 12:00 Notice Type: IM Discharge Notice Notice Delivered To: Family Member Relationship to Patient: Spouse Water Pollution Specialist Name: RHIANNA GARCIA Delivery Method: HAND - Hand Delivered Niki Days: Prior Verbal Notification: Recipient Understood Notice: Yes Recipient Signature: Yes Med Rec Note Co-signed by Attending: Coverage Notice Comment: Last DP export: 07/23/18 4:29 Patient Name: ALBINA GARCIA Page [id number] at 1737 All edits/amendments must be made on the electronic document DICTATION DATE: 07/23/181735 TRAINING INSTRUCTOR: EDDA 07/23/181735 RPT#: [id number] PA DATE: STATUS: ADM IN [facility] [address] [place] [address] END OF REPORT
--- NOTE | ~2018-07-18 | MORECARE ---
CASE MANAGEMENT DISCHARGE SUMMARY PATIENT: ALBINA GARCIA UNIT: [id number] ADM DATE: 07/18/18 AGE: 73 : 43 SEX: F ROOM/BED: D.6483 AUTHOR: CARMEN,DOC PHYSICIAN: REFERRING PHYSICIAN: SHARDA WOOTEN MD DATE OF SERVICE: 08/07/18 Discharge Plan Patient Name: ALBINA GARCIA Facility: [facility]:[place] : 1945 Planned Disposition: Custodial Facility Anticipated Discharge Date: Discharge Date: Expected LOS: Initial Reviewer: [id number] Initial Review Date: 07/18/2018 Generated: 08/07/18 5:54 pm Comments DCP- Discharge Planning Updated by [id number]: Nitish Ferris on 08/07/18 3:[address] Patient Name: ALBINA GARCIA Encounter No: [id number] : 1945 Primary Insurance: MEDICARE A & B Anticipated DC Date: Planned Disposition: Custodial Facility External Planned Provider: [facility] OR [facility], MEDICARE REHAB BED DCP follow-up note: CM MET WITH PT, SPOUSE AND SON IN ROOM TO DISCUSS DISCHARGE PLANNING AND NEEDS. PT WOULD ONLY ANSWER DIRECT QUESTIONS AND DID NOT ACTIVELY PARTICIPATE IN DISCHARGE PLANNING. PT'S SPOUSE AND SON ARE REQUESTING REHAB IN [place] AT [facility], [facility] OR [facility]. CHOICE SIGNED. CM NOTIFIED EUN RICHARD OF [facility] OF DISCHARGE PLAN. CM CALLED [facility], [phone], SPOKE TO SANDRA WHO REPORTS THEY ARE NOT CURRENTLY ACCEPTING ANY MORE DIALYSIS PATIENTS. CM CALLED [facility] AND [facility], , LEFT MESSAGE FOR ONEAL GOMEZ OF ADMISSIONS AND FAXED REFERRAL TO [phone]. THEY CAN ACCOMODATE DIALYSIS PATIENTS IN FACILITY. CM [facility]ED [facility], , SPOKE TO ALBINA, FAXED REFERRAL TO [phone], ATTENTION ADMISSIONS. THEY CAN ACCOMODATE DIALYSIS PATIENTS IN FACILITY. [facility] WILL NOT ACCEPT. CM WAITING ADMISSION DETERMINATIONS FROM [facility] AND [facility] IN [place]. IF ACCEPTED, CM WILL NEED TO ARRANGE OUTPATIENT DIALYSIS UNIT. NITISH FERRIS, CASE MANAGEMENT DCP- Discharge Planning Updated by [id number]: Nitish Ferris on 08/06/18 2:[address] Patient Name: ALBINA GARCIA Encounter No: [id number] : 1945 Primary Insurance: MEDICARE A & B Anticipated DC Date: Planned Disposition: Custodial Facility External Planned Provider: TO BE DETERMINED DCP follow-up note: CM MET WITH PT AND SON IN ROOM TO DISCUSS DISCHARGE PLANNING AND NEEDS. PT'S SON INFORMED CM THAT PT'S SPOUSE ALONG WITH HE WILL BE ASSISTING WITH DISCHARGE PLANNING, THEY ARE CONSIDERING SENIOR LIVING FOR REHAB AND BOTH WANT TO BE PRESENT TO DISCUSS ISSUES. PT'S SPOUSE IS OUT OF TOWN TODAY AND WILL BE BACK SOMETIME TOMORROW AND WILL NOTIFY CM WHEN THEY ARRIVE AT HOSPITAL TO DISCUSS DISCHARGE PLANNING. CM PROVIDED HOSPITAL CARE TECH AND CM CONTACT INFORMATION. CM WAITING FAMILY ARRIVAL 08-07-18, TO DISCUSS SENIOR LIVING REHAB PLACEMENT OPTIONS. Nitish Ferris CASE MANAGEMENT DCP- Discharge Planning Updated by [id number]: Peyton Burrows on 07/27/18 5:[address] CM SPOKE WITH DAJUAN WITH [facility] CALLED REQUESTING FOR NOTIFICATION OF DISCHARGE [phone] DIRECT NUMBER [phone].CM will continue to follow and assist as needed with discharge planning / needs. DCP- Discharge Planning Updated by [id number]: Nitish Ferris on 07/24/18 9:[address] Patient Name: ALBINA GARCIA Encounter No: [id number] : 1945 Primary Insurance: MEDICARE A & B Anticipated DC Date: Planned Disposition: Home with Home Health External Planned Provider: [facility] DCP follow-up note: CM CALLED [facility] CENTRAL INTAKE LINE, , SPOKE TO TERESA WHO VERIFIED THEY ARE ACTIVE FOR WOUND VAC AND IV INFUSION SERVICES AT HOME; TERESA IS UNSURE IF PT IS RECEIVING HOME PHYSICAL THERAPY AND WILL NEED THAT ADDED TO AN ORDER FOR HOME HEALTH RESUMPTION. CM FAXED UPDATE TO [facility] AT [phone]. SPOUSE BELIEVES PATIENT MAY NEED A WHEELCHAIR TO ASSIST HIM WITH GETTING PT OUT OF HOME. PT REPORTS PLAN FOR HOME WITH [facility] FOR INFUSION AND WOUND VAC DRESSING CHANGES TO CONTINUE. CM TO FOLLOW AND ASSIST NEEDED. NOTIFY [facility] OF DISCHARGE AT [phone], FAX DISCHARGE INFORMATION TO [facility] AT [phone]. Crossbar Switch Adjuster: Nitish Ferris DCP- Discharge Planning Updated by [id number]: Nitish Ferris on 07/23/18 4:[address] Patient Name: ALBINA GARCIA Admission Status: ER Accout number: [id number] Admission Date: 07-18-2018 : 1945 Admission Diagnosis:ACUTE KIDNEY FAILURE, UNSPECIFIED Attending: SHARDA WOOTEN Current LOS: 5 Anticipated DC Date: Planned Disposition: Home with Home Health Primary Insurance: MEDICARE A & B PLANNED EXTERNAL PROVIDER: [facility] OFFICE Discharge Planning Comments: CM MET WITH PT AND SPOUSE IN ROOM TO DISCUSS DISCHARGE PLANNING AND NEEDS. ALBINA GARCIA provided verbal consent to discuss current and ongoing needs with/in the presence of: SPOUSE, RHIANNA. PT REPORTS LIVING AT HOME INDEPENDENTLY WITH HER SPOUSE. PT HAS ROLLING WALKER WITH SEAT AND BRAKES, BEDSIDE COMMODE AND HOME / PORTABLE OXYGEN FROM [employer]. PT HAS HOME HEALTH FOR INFUSION AND WOUND VAC CARE AND DRESSING CHANGES WITH [facility] OUT OF [place]. CM DISCUSSED AVAILABILITY OF HOME HEALTH, REHAB SERVICES AND MEDICAL EQUIPMENT. PT DENIES DISCHARGE NEEDS AND REPORTS SHE IS GOING HOME WITH CONTINUED HOME HEALTH. CM DISCUSSED PT'S DOCTOR AND THERAPY NOTES INDICATING PT BEING WEAK AND DISCUSSED AVAILABILITY OF REHAB SERVICES. PT STATES SHE IS GOING HOME AT DISCHARGE AN NO WHERE ELSE. PT'S SPOUSE REPORTS THEY MAY NEED A WHEELCHAIR TO GET PT OUT FOR LONG DISTANCES, SPOUSE WILL PICK PT UP FOR DISCHARGE HOME. IMPORTANT MESSAGE FROM MEDICARE PROVIDED AND EXPLAINED. SPOUSE BELIEVES PATIENT MAY NEED A WHEELCHAIR TO ASSIST HIM WITH GETTING PT OUT OF HOME. PT REPORTS PLAN FOR HOME WITH [facility] FOR INFUSION AND WOUND VAC DRESSING CHANGES TO CONTINUE. CM TO FOLLOW AND ASSIST NEEDED. Crossbar Switch Adjuster: Nitish Ferris KSPIA - Discharge Planning Initial Assessment Updated by [id number]: Nitish Ferris on 07/23/18 5:29 pm * Is the patient Alert and Oriented? Yes * How many steps to enter\exit or inside your home? NONE * PCP DR. YEBOAH IN [place] * Pharmacy [facility] IN [place] * Preadmission Environment Home with Family * ADLs Partial Dependent * Partial ADLs (Assistance needed) Ambulation Medication Management Transfers * Equipment Bedside Commode Oxygen Rolling Walker Wound Vac * Other Equipment ROLLING WALKER WITH SEAT AND BRAKES HOME AND PORTABLE OXYGEN [employer] [facility] - MEDICAL EQUIPMENT PROVIDER * List name and contact numbers for known caregivers / representatives who currently or will assist patient after discharge: RHIANNA GARCIA, SPOUSE, , * Verbal permission to speak to the caregivers and representatives has been obtained from the patient. Yes * Community resources currently utilized Home Health Infusion Services * Please name any agencies selected above. [employer], [employer], HAS MEDICATIONS AT HOME * Additional services required to return to the preadmission environment? No * Can the patient safely return to the preadmission environment? Yes * Has this patient been hospitalized within the prior 30 days at any hospital? Yes Coverage Notice Reviewer: [id number] Ferris Notice Issued Date-Time: 07/23/2018 12:00 Notice Type: IM Discharge Notice Notice Delivered To: Family Member Relationship to Patient: Spouse Manager Wellness Name: RHIANNA GARCIA Delivery Method: HAND - Hand Delivered Niki Days: Prior Verbal Notification: Recipient Understood Notice: Yes Recipient Signature: Yes Med Rec Note Co-signed by Attending: Coverage Notice Comment: Reviewer: CASPER Ferris Notice Issued Date-Time: 08/07/2018 11:45 Notice Type: Patient Choice Letter Notice Delivered To: Family Member Relationship to Patient: Spouse Manager Wellness Name: RHIANNA GARCIA Delivery Method: HAND - Hand Delivered Niki Days: Prior Verbal Notification: Recipient Understood Notice: Yes Recipient Signature: Yes Med Rec Note Co-signed by Attending: Coverage Notice Comment: [facility] [place] Last export: 08/07/18 3:45 Patient Name: ALBINA GARCIA Page [id number] at 1654 All edits/amendments must be made on the electronic document DICTATION DATE: 08/07/181653 SIZER HAND: EDDA 08/07/181653 RPT#: [id number] DC DATE: STATUS: ADM IN [address] [place] [address] END OF REPORT
--- NOTE | ~2018-07-18 | MORECARE ---
CASE MANAGEMENT DISCHARGE SUMMARY PATIENT: ALBINA GARCIA UNIT: [id number] ADM DATE: 07/18/18 AGE: 73 : 44 SEX: F ROOM/BED: D.2315 AUTHOR: CARMEN,DOC PHYSICIAN: REFERRING PHYSICIAN: SHARDA WOOTEN MD DATE OF SERVICE: 07/27/18 Discharge Plan Patient Name: ALBINA GARCIA Facility: [facility]:[place] : 1945 Planned Disposition: Home with Home Health Anticipated Discharge Date: Discharge Date: Expected LOS: Initial Reviewer: [id number] Initial Review Date: 07/18/2018 Generated: 07/27/18 7:07 pm Comments DCP- Discharge Planning Updated by [id number]: Peyton Burrows on 07/27/18 5:[address] CM SPOKE WITH CRYSTAL WITH [facility] CALLED REQUESTING FOR NOTIFICATION OF DISCHARGE [phone] DIRECT NUMBER [phone].CM will continue to follow and assist as needed with discharge planning / needs. DCP- Discharge Planning Updated by [id number]: Cesario Ha on 07/24/18 9:[address] Patient Name: ALBINA GARCIA Encounter No: [id number] : 1945 Primary Insurance: MEDICARE A & B Anticipated DC Date: Planned Disposition: Home with Home Health External Planned Provider: [facility] DCP follow-up note: CM CALLED [facility] CENTRAL INTAKE LINE, , SPOKE TO TERESA WHO VERIFIED THEY ARE ACTIVE FOR WOUND VAC AND IV INFUSION SERVICES AT HOME; [facility] IS UNSURE IF PT IS RECEIVING HOME PHYSICAL THERAPY AND WILL NEED THAT ADDED TO AN ORDER FOR HOME HEALTH RESUMPTION. CM FAXED UPDATE TO [facility] AT [phone]. SPOUSE BELIEVES PATIENT MAY NEED A WHEELCHAIR TO ASSIST HIM WITH GETTING PT OUT OF HOME. PT REPORTS PLAN FOR HOME WITH [facility] FOR INFUSION AND WOUND VAC DRESSING CHANGES TO CONTINUE. CM TO FOLLOW AND ASSIST NEEDED. NOTIFY [facility] OF DISCHARGE AT [phone], FAX DISCHARGE INFORMATION TO [facility] AT [phone]. Community Dietitian: Cesario Ha DCP- Discharge Planning Updated by [id number]: Cesario Ha on 07/23/18 4:[address] Patient Name: ALBINA GARCIA Admission Status: ER Accout number: [id number] Admission Date: 07-18-2018 : 1945 Admission Diagnosis:ACUTE KIDNEY FAILURE, UNSPECIFIED Attending: SHARDA WOOTEN Current LOS: 5 Anticipated DC Date: Planned Disposition: Home with Home Health Primary Insurance: MEDICARE A & B PLANNED EXTERNAL PROVIDER: [facility] OFFICE Discharge Planning Comments: CM MET WITH PT AND SPOUSE IN ROOM TO DISCUSS DISCHARGE PLANNING AND NEEDS. ALBINA GARCIA provided verbal consent to discuss current and ongoing needs with/in the presence of: SPOUSE, RHIANNA. PT REPORTS LIVING AT HOME INDEPENDENTLY WITH HER SPOUSE. PT HAS ROLLING WALKER WITH SEAT AND BRAKES, BEDSIDE COMMODE AND [facility]. PT HAS HOME HEALTH FOR INFUSION AND WOUND VAC CARE AND DRESSING CHANGES WITH [facility] OUT OF [place]. CM DISCUSSED AVAILABILITY OF HOME HEALTH, REHAB SERVICES AND MEDICAL EQUIPMENT. PT DENIES DISCHARGE NEEDS AND REPORTS SHE IS GOING HOME WITH CONTINUED HOME HEALTH. CM DISCUSSED PT'S DOCTOR AND THERAPY NOTES INDICATING PT BEING WEAK AND DISCUSSED AVAILABILITY OF REHAB SERVICES. PT STATES SHE IS GOING HOME AT DISCHARGE AN NO WHERE ELSE. PT'S SPOUSE REPORTS THEY MAY NEED A WHEELCHAIR TO GET PT OUT FOR LONG DISTANCES, SPOUSE WILL PICK PT UP FOR DISCHARGE HOME. IMPORTANT MESSAGE FROM MEDICARE PROVIDED AND EXPLAINED. SPOUSE BELIEVES PATIENT MAY NEED A WHEELCHAIR TO ASSIST HIM WITH GETTING PT OUT OF HOME. PT REPORTS PLAN FOR HOME WITH [facility] FOR INFUSION AND WOUND VAC DRESSING CHANGES TO CONTINUE. CM TO FOLLOW AND ASSIST NEEDED. Community Dietitian: Cesario Ha DCPIA - Discharge Planning Initial Assessment Updated by [id number]: Cesario Ha on 07/23/18 5:29 pm * Is the patient Alert and Oriented? Yes * How many steps to enter\exit or inside your home? NONE * PCP DR. YEBOAH IN [place] * Pharmacy [facility] IN [place] * Preadmission Environment Home with Family * ADLs Partial Dependent * Partial ADLs (Assistance needed) Ambulation Medication Management Transfers * Equipment Bedside Commode Oxygen Rolling Walker Wound Vac * Other Equipment ROLLING WALKER WITH SEAT AND BRAKES HOME AND PORTABLE OXYGEN [employer] [facility] - MEDICAL EQUIPMENT PROVIDER * List name and contact numbers for known caregivers / representatives who currently or will assist patient after discharge: RHIANNA GARCIA, SPOUSE, , * Verbal permission to speak to the caregivers and representatives has been obtained from the patient. Yes * Community resources currently utilized Home Health Infusion Services * Please name any agencies selected above. [place], [place] [employer] [facility] [employer], HAS MEDICATIONS AT HOME * Additional services required to return to the preadmission environment? No * Can the patient safely return to the preadmission environment? Yes * Has this patient been hospitalized within the prior 30 days at any hospital? Yes Coverage Notice Reviewer: [id number] Pedro Luis Ha Notice Issued Date-Time: 07/23/2018 12:00 Notice Type: IM Discharge Notice Notice Delivered To: Family Member Relationship to Patient: Spouse Plant Engineering Supervisor Name: RHIANNA GARCIA Delivery Method: HAND - Hand Delivered Niki Days: Prior Verbal Notification: Recipient Understood Notice: Yes Recipient Signature: Yes Med Rec Note Co-signed by Attending: Coverage Notice Comment: Last DP export: 07/24/18 9:24 Patient Name: ALBINA GARCIA Page [id number] at 1808 All edits/amendments must be made on the electronic document DICTATION DATE: 07/27/181806 YOUTH NUTRITIONAL MONITOR: EDDA 07/27/181806 RPT#: [id number] DC DATE: STATUS: ADM IN [facility] [address] [place] [address] END OF REPORT
[2018-07-18] MEDS ORDERED: XANAX1 MG (20:33)
[2018-07-18] MEDS ORDERED: ZYRTEC10 MG PO (20:33)
[2018-07-18] MEDS ORDERED: DEMADEX20 MG PO (20:33)
[2018-07-18] MEDS ORDERED: TRADJENTA5 MG PO (20:33)
[2018-07-18] MEDS ORDERED: ZETIA10 MG PO (20:34)
[2018-07-18] MEDS ORDERED: BENTYL10 MG PO (20:34)
[2018-07-18] MEDS ORDERED: PEPCID40 MG PO (20:34)
[2018-07-18] MEDS ORDERED: COLACE100 MG PO (20:34)
[2018-07-18] MEDS ORDERED: PLAVIX75 MG PO (20:34)
[2018-07-18] MEDS ORDERED: NITROSTAT0.4 MG SL (20:35)
[2018-07-18] MEDS ORDERED: POTASSIUM20 MEQ/15 PO (20:35)
[2018-07-18] MEDS ORDERED: METOPROLOL TART50 MG PO (20:35)
[2018-07-18] MEDS ORDERED: ASCORBIC ACID500 MG PO (20:36)
[2018-07-18 21:25] LABS: BASOPHILS 0.6 % (0-2); EOSINOPHILS 2.6 % (0-7); HEMATOCRIT 24.2 % (36.0-48.0); HEMOGLOBIN 7.6 g/dL (12-16); IMMATURE GRANULOCYTES 0.3 % (0-5); LYMPHOCYTES 10.5 % (15-50); MCH 28.1 pg (26.0-34.0); MCHC 31.4 g/dL (31.0-37.0); MCV 89.6 fL (80.0-100.0); MEAN PLATELET VOLUME 10.5 fL (7.4-10.4); MONOCYTES 8.2 % (2-11); NEUTROPHILS 77.8 % (40-80); PLATELET COUNT 213 10x3/uL (130-400); RDW 14.7 % (11.5-14.5)
[2018-07-18 21:47] LABS: ALBUMIN 2.6 g/dL (3.4-5.0); BILIRUBIN - TOTAL 0.23 mg/dL (0.2-1.3); CALCIUM 9.8 mg/dL (8.5-10.1); CARBON DIOXIDE 24.9 mmol/L (21.0-32.0); CREATININE - SERUM 4.8 mg/dL (0.6-1.3); POTASSIUM - SERUM 4.9 mmol/L (3.5-5.1); PROTEIN - SERUM 7.6 g/dL (6.4-8.2)
[2018-07-19] VITALS (7 sets, daily range): BP systolic 115–135; BP diastolic 41–56; BMI 21.3
[2018-07-19] MEDS ORDERED: EZETIMIBE-SIMVASTATI PO (00:54)
[2018-07-19] MEDS ORDERED: MAXIPIME 2 GM/D52 G1 (00:54)
[2018-07-19] MEDS ORDERED: ACETAMINOPHEN325 MG PO (00:55)
[2018-07-19 06:20] LABS: BASOPHILS 0.5 % (0-2); EOSINOPHILS 2.7 % (0-7); HEMATOCRIT 24.5 % (36.0-48.0); HEMOGLOBIN 7.6 g/dL (12-16); IMMATURE GRANULOCYTES 0.2 % (0-5); LYMPHOCYTES 11.6 % (15-50); MCV 90.4 fL (80.0-100.0); MEAN PLATELET VOLUME 11.2 fL (7.4-10.4); MONOCYTES 7.7 % (2-11); NEUTROPHILS 77.3 % (40-80); PLATELET COUNT 218 10x3/uL (130-400); RBC 2.71 10x6/uL (4.00-5.40); RDW 14.6 % (11.5-14.5); WBC 6.6 10x3/uL (4.8-10.8)
[2018-07-19 06:39] LABS: ALBUMIN 2.4 g/dL (3.4-5.0); ANION GAP 11.9 mmol/L (8-16); BILIRUBIN - TOTAL 0.17 mg/dL (0.2-1.3); CALCIUM 9.2 mg/dL (8.5-10.1); CREATININE - SERUM 4.9 mg/dL (0.6-1.3); MAGNESIUM - SERUM 2.2 mg/dL (1.8-2.4); PHOSPHOROUS 4.5 mg/dL (2.5-4.9); POTASSIUM - SERUM 4.9 mmol/L (3.5-5.1); PROTEIN - SERUM 7.3 g/dL (6.4-8.2)
[2018-07-19 08:10] LABS: APPEARANCE CLEAR (CLEAR); BILIRUBIN NEGATIVE (NEGATIVE); COLOR STRAW (YELLOW); GLUCOSE NEGATIVE (NEGATIVE); KETONE NEGATIVE (NEGATIVE); NITRITE NEGATIVE (NEGATIVE); PROTEIN 1+ mg/dL (NEGATIVE); SPECIFIC GRAVITY 1.015 (1.005-1.020); UROBILINOGEN NORMAL (NORMAL)
[2018-07-19 08:11] LABS: AMORPHOUS SEDIMENT <1+ /lpf (NONE SEEN); BACTERIA FEW /hpf (NONE SEEN); MUCUS <1+ /lpf (NONE SEEN); RED CELLS - URINE 0-5 /hpf (0-5); WHITE CELLS - URINE OCC /hpf (0-5)
[2018-07-19 08:12] LABS: HYALINE CAST OCC /lpf (NONE SEEN)
[2018-07-19 14:05] LABS: % SATURATION 16 % (15-55); IRON 42 ug/dl (35-150); TOTAL IRON BIND CAPACITY 251 ug/dl (260-445); UNSAT IRON BIND CAPACITY 209 ug/dl (150-375)
[2018-07-19 18:50] LABS: CREATININE - URINE 46.8 mg/dL (30-125); POTASSIUM - URINE 34.3 MMOL/L (12.0-62.0); PRO/CRE RATIO URINE 2.6 mg/g; PROTEIN - URINE 123.2 mg/dL (0.0-11.9)
[2018-07-20 00:30] VITALS: BP 124/45
[2018-07-20 04:30] VITALS: BP 122/50
[2018-07-20 04:31] LABS: BASOPHILS 0.3 % (0-2); EOSINOPHILS 3.3 % (0-7); HEMATOCRIT 22.2 % (36.0-48.0); IMMATURE GRANULOCYTES 0.3 % (0-5); LYMPHOCYTES 12.8 % (15-50); MCH 28.6 pg (26.0-34.0); MCHC 31.1 g/dL (31.0-37.0); MCV 92.1 fL (80.0-100.0); MEAN PLATELET VOLUME 10.6 fL (7.4-10.4); NEUTROPHILS 74.3 % (40-80); PLATELET COUNT 195 10x3/uL (130-400); RBC 2.41 10x6/uL (4.00-5.40); RDW 14.7 % (11.5-14.5); WBC 6.1 10x3/uL (4.8-10.8)
[2018-07-20 04:32] LABS: HEMOGLOBIN 6.9 g/dL (12-16)
[2018-07-20 04:40] LABS: ANION GAP 10.9 mmol/L (8-16); CALCIUM 9.2 mg/dL (8.5-10.1); CARBON DIOXIDE 27.9 mmol/L (21.0-32.0); CREATININE - SERUM 4.6 mg/dL (0.6-1.3); POTASSIUM - SERUM 4.8 mmol/L (3.5-5.1)
[2018-07-20 09:31] VITALS: BP 117/39
[2018-07-20 11:35] VITALS: BP 100/46
[2018-07-20 12:27] VITALS: BMI 21.3
[2018-07-20 14:06] VITALS: Ht 167.6 cm; Wt 65.5 kg
[2018-07-20 16:36] VITALS: BP 143/67
[2018-07-20 19:00] VITALS: BP 125/52
[2018-07-21 01:37] VITALS: BP 126/55
[2018-07-21 05:39] LABS: BASOPHILS 0.2 % (0-2); EOSINOPHILS 1.6 % (0-7); IMMATURE GRANULOCYTES 0.4 % (0-5); LYMPHOCYTES 7.9 % (15-50); MCH 28.5 pg (26.0-34.0); MCHC 31.5 g/dL (31.0-37.0); MCV 90.3 fL (80.0-100.0); MEAN PLATELET VOLUME 10.8 fL (7.4-10.4); MONOCYTES 8.7 % (2-11); NEUTROPHILS 81.2 % (40-80); PLATELET COUNT 184 10x3/uL (130-400); RDW 15.7 % (11.5-14.5)
[2018-07-21 05:44] LABS: HEMATOCRIT 29.8 % (36.0-48.0); HEMOGLOBIN 9.4 g/dL (12-16); WBC 8.5 10x3/uL (4.8-10.8)
[2018-07-21 06:11] VITALS: BP 115/78
[2018-07-21 06:30] LABS: CALCIUM 8.9 mg/dL (8.5-10.1); CARBON DIOXIDE 23.6 mmol/L (21.0-32.0); CREATININE - SERUM 4.4 mg/dL (0.6-1.3); POTASSIUM - SERUM 4.6 mmol/L (3.5-5.1)
[2018-07-21 07:28] LABS: FOLATE (FOLIC ACID) - SERUM 14.6 ng/mL (>3.0)
[2018-07-21 09:39] VITALS: BP 131/58
[2018-07-21 11:45] VITALS: BP 109/47
[2018-07-21 19:00] VITALS: BP 140/59
[2018-07-22 01:14] VITALS: BP 122/43
[2018-07-22 05:25] VITALS: BP 125/54
[2018-07-22 05:55] LABS: BASOPHILS 0.4 % (0-2); EOSINOPHILS 1.3 % (0-7); HEMATOCRIT 31.2 % (36.0-48.0); HEMOGLOBIN 9.6 g/dL (12-16); IMMATURE GRANULOCYTES 0.4 % (0-5); LYMPHOCYTES 10.1 % (15-50); MCH 28.2 pg (26.0-34.0); MCHC 30.8 g/dL (31.0-37.0); MCV 91.5 fL (80.0-100.0); MONOCYTES 6.8 % (2-11); PLATELET COUNT 191 10x3/uL (130-400); RBC 3.41 10x6/uL (4.00-5.40); RDW 15.6 % (11.5-14.5); WBC 8.2 10x3/uL (4.8-10.8)
[2018-07-22 06:04] LABS: ANION GAP 13.2 mmol/L (8-16); CALCIUM 9.2 mg/dL (8.5-10.1); CARBON DIOXIDE 24.8 mmol/L (21.0-32.0); CREATININE - SERUM 4.3 mg/dL (0.6-1.3)
[2018-07-22 09:27] VITALS: BP 122/55
[2018-07-22 11:33] VITALS: BP 114/54
[2018-07-22 19:45] VITALS: BP 140/59
[2018-07-22 23:35] VITALS: BP 132/52
[2018-07-23 03:34] VITALS: BP 153/37
[2018-07-23 06:15] LABS: BASOPHILS 0.4 % (0-2); EOSINOPHILS 1.8 % (0-7); HEMATOCRIT 32.4 % (36.0-48.0); IMMATURE GRANULOCYTES 0.5 % (0-5); LYMPHOCYTES 9.7 % (15-50); MCH 28.6 pg (26.0-34.0); MCHC 30.9 g/dL (31.0-37.0); MCV 92.6 fL (80.0-100.0); MEAN PLATELET VOLUME 10.8 fL (7.4-10.4); MONOCYTES 7.7 % (2-11); NEUTROPHILS 79.9 % (40-80); PLATELET COUNT 191 10x3/uL (130-400); RDW 15.5 % (11.5-14.5); WBC 8.5 10x3/uL (4.8-10.8)
[2018-07-23 06:33] LABS: ANION GAP 15.5 mmol/L (8-16); CALCIUM 9.1 mg/dL (8.5-10.1); CARBON DIOXIDE 24.8 mmol/L (21.0-32.0); CREATININE - SERUM 4.6 mg/dL (0.6-1.3); POTASSIUM - SERUM 5.3 mmol/L (3.5-5.1)
[2018-07-23 08:22] VITALS: BP 129/54
[2018-07-23 11:39] VITALS: BP 118/51
[2018-07-23 19:45] VITALS: BP 142/27
[2018-07-23 23:45] VITALS: BP 137/55
[2018-07-24] VITALS (13 sets, daily range): BP systolic 105–149; BP diastolic 42–91
[2018-07-24 06:14] LABS: BASOPHILS 0.2 % (0-2); EOSINOPHILS 1.1 % (0-7); HEMATOCRIT 28.3 % (36.0-48.0); HEMOGLOBIN 8.7 g/dL (12-16); LYMPHOCYTES 9.5 % (15-50); MCH 28.5 pg (26.0-34.0); MCHC 30.7 g/dL (31.0-37.0); MCV 92.8 fL (80.0-100.0); MEAN PLATELET VOLUME 10.7 fL (7.4-10.4); NEUTROPHILS 80.2 % (40-80); PLATELET COUNT 171 10x3/uL (130-400); RBC 3.05 10x6/uL (4.00-5.40); RDW 15.3 % (11.5-14.5); WBC 8.8 10x3/uL (4.8-10.8)
[2018-07-24 06:25] LABS: ANION GAP 6.9 mmol/L (8-16); CALCIUM 8.2 mg/dL (8.5-10.1); CARBON DIOXIDE 21.6 mmol/L (21.0-32.0); CREATININE - SERUM 5.1 mg/dL (0.6-1.3)
[2018-07-24 06:29] LABS: POTASSIUM - SERUM 4.5 mmol/L (3.5-5.1)
[2018-07-24 12:18] LABS: BASOPHILS 0.4 % (0-2); HEMATOCRIT 31.5 % (36.0-48.0); HEMOGLOBIN 9.8 g/dL (12-16); IMMATURE GRANULOCYTES 1.3 % (0-5); LYMPHOCYTES 8.3 % (15-50); MCH 28.7 pg (26.0-34.0); MCHC 31.1 g/dL (31.0-37.0); MCV 92.4 fL (80.0-100.0); MEAN PLATELET VOLUME 10.2 fL (7.4-10.4); MONOCYTES 4.8 % (2-11); NEUTROPHILS 84.2 % (40-80); PLATELET COUNT 180 10x3/uL (130-400); RBC 3.41 10x6/uL (4.00-5.40); RDW 15.4 % (11.5-14.5); WBC 9.8 10x3/uL (4.8-10.8)
[2018-07-24 12:46] LABS: ALBUMIN 2.5 g/dL (3.4-5.0); ALKALINE PHOSPHATASE 79 U/L (46-116); ALT (SGPT) 26 U/L (10-68); BILIRUBIN - TOTAL 0.17 mg/dL (0.2-1.3); CALC OSMOLALITY 309 mosm/kg (275-300); CALCIUM 9.1 mg/dL (8.5-10.1); CARBON DIOXIDE 22.7 mmol/L (21.0-32.0); CHLORIDE - SERUM 103 mmol/L (98-107); CREATINE KINASE 28 UL (21-215); CREATININE - SERUM 5.2 mg/dL (0.6-1.3); GLUCOSE 151 mg/dL (74-106); POTASSIUM - SERUM 5.6 mmol/L (3.5-5.1); PROTEIN - SERUM 7.5 g/dL (6.4-8.2); SODIUM 137 mmol/L (136-145); UREA NITROGEN 104 mg/dL (7-18); eGFR NON AFRICAN AMERICAN 9 mL/min (90-120)
[2018-07-24 12:47] LABS: TROPONIN-I < 0.017 ng/mL (0.000-0.060)
[2018-07-24 18:44] LABS: ANION GAP 18.8 mmol/L (8-16); CALCIUM 9.1 mg/dL (8.5-10.1); CARBON DIOXIDE 20.8 mmol/L (21.0-32.0); CREATININE - SERUM 5.1 mg/dL (0.6-1.3); POTASSIUM - SERUM 4.6 mmol/L (3.5-5.1)
[2018-07-25] VITALS (24 sets, daily range): BP systolic 111–154; BP diastolic 51–74
[2018-07-25 03:49] LABS: BASOPHILS 0.3 % (0-2); EOSINOPHILS 1.5 % (0-7); HEMATOCRIT 28.4 % (36.0-48.0); HEMOGLOBIN 9.1 g/dL (12-16); IMMATURE GRANULOCYTES 0.4 % (0-5); LYMPHOCYTES 6.5 % (15-50); MCH 28.6 pg (26.0-34.0); MEAN PLATELET VOLUME 10.9 fL (7.4-10.4); MONOCYTES 5.8 % (2-11); NEUTROPHILS 85.5 % (40-80); PLATELET COUNT 181 10x3/uL (130-400); RBC 3.18 10x6/uL (4.00-5.40); RDW 14.6 % (11.5-14.5); WBC 9.6 10x3/uL (4.8-10.8)
[2018-07-25 03:55] LABS: ALBUMIN 2.4 g/dL (3.4-5.0); ANION GAP 20.8 mmol/L (8-16); BILIRUBIN - TOTAL 0.34 mg/dL (0.2-1.3); CALCIUM 8.9 mg/dL (8.5-10.1); CARBON DIOXIDE 19.5 mmol/L (21.0-32.0); CREATININE - SERUM 5.1 mg/dL (0.6-1.3); POTASSIUM - SERUM 4.3 mmol/L (3.5-5.1); PROTEIN - SERUM 6.7 g/dL (6.4-8.2)
[2018-07-25 04:02] LABS: MCV 89.3 fL (80.0-100.0)
[2018-07-26] VITALS (24 sets, daily range): BP systolic 105–149; BP diastolic 50–73
[2018-07-26 05:07] LABS: BASOPHILS 0.3 % (0-2); EOSINOPHILS 2.1 % (0-7); HEMATOCRIT 28.6 % (36.0-48.0); HEMOGLOBIN 9.5 g/dL (12-16); IMMATURE GRANULOCYTES 0.3 % (0-5); LYMPHOCYTES 6.2 % (15-50); MCH 28.4 pg (26.0-34.0); MCHC 33.2 g/dL (31.0-37.0); MCV 85.6 fL (80.0-100.0); MEAN PLATELET VOLUME 10.3 fL (7.4-10.4); MONOCYTES 7.2 % (2-11); NEUTROPHILS 83.9 % (40-80); PLATELET COUNT 177 10x3/uL (130-400); RBC 3.34 10x6/uL (4.00-5.40); RDW 14.7 % (11.5-14.5); WBC 9.5 10x3/uL (4.8-10.8)
[2018-07-26 05:20] LABS: ALBUMIN 2.2 g/dL (3.4-5.0); ANION GAP 19.3 mmol/L (8-16); BILIRUBIN - TOTAL 0.37 mg/dL (0.2-1.3); CALCIUM 8.5 mg/dL (8.5-10.1); CARBON DIOXIDE 22.2 mmol/L (21.0-32.0); CREATININE - SERUM 5.2 mg/dL (0.6-1.3); PROTEIN - SERUM 6.6 g/dL (6.4-8.2)
[2018-07-26 05:21] LABS: POTASSIUM - SERUM 3.5 mmol/L (3.5-5.1)
[2018-07-27] VITALS (24 sets, daily range): BP systolic 104–141; BP diastolic 53–78
[2018-07-27 06:25] LABS: ALBUMIN 1.9 g/dL (3.4-5.0); ANION GAP 21.1 mmol/L (8-16); BILIRUBIN - TOTAL 0.43 mg/dL (0.2-1.3); CALCIUM 8.5 mg/dL (8.5-10.1); CARBON DIOXIDE 21.9 mmol/L (21.0-32.0); CREATININE - SERUM 5.1 mg/dL (0.6-1.3); PROTEIN - SERUM 6.1 g/dL (6.4-8.2)
[2018-07-27 07:07] LABS: BASOPHILS 0.2 % (0-2); EOSINOPHILS 2.1 % (0-7); HEMATOCRIT 26.4 % (36.0-48.0); HEMOGLOBIN 8.7 g/dL (12-16); IMMATURE GRANULOCYTES 0.4 % (0-5); LYMPHOCYTES 5.5 % (15-50); MCH 28.2 pg (26.0-34.0); MCV 85.7 fL (80.0-100.0); MEAN PLATELET VOLUME 11.3 fL (7.4-10.4); MONOCYTES 7.5 % (2-11); NEUTROPHILS 84.3 % (40-80); PLATELET COUNT 182 10x3/uL (130-400); RBC 3.08 10x6/uL (4.00-5.40); RDW 14.6 % (11.5-14.5)
[2018-07-27 17:14] LABS: MAGNESIUM - SERUM 2.5 mg/dL (1.8-2.4)
[2018-07-27 17:21] LABS: POTASSIUM - SERUM 3.5 mmol/L (3.5-5.1)
[2018-07-28] VITALS (24 sets, daily range): BP systolic 101–140; BP diastolic 47–70
[2018-07-28 05:38] LABS: BASOPHILS 0.3 % (0-2); EOSINOPHILS 2.4 % (0-7); HEMATOCRIT 26.2 % (36.0-48.0); HEMOGLOBIN 8.5 g/dL (12-16); IMMATURE GRANULOCYTES 0.3 % (0-5); LYMPHOCYTES 7.5 % (15-50); MCH 28.5 pg (26.0-34.0); MCHC 32.4 g/dL (31.0-37.0); MEAN PLATELET VOLUME 11.6 fL (7.4-10.4); MONOCYTES 4.8 % (2-11); NEUTROPHILS 84.7 % (40-80); PLATELET COUNT 177 10x3/uL (130-400); RBC 2.98 10x6/uL (4.00-5.40); RDW 14.8 % (11.5-14.5); WBC 10.3 10x3/uL (4.8-10.8)
[2018-07-28 05:39] LABS: MCV 87.9 fL (80.0-100.0)
[2018-07-28 06:21] LABS: ALBUMIN 1.8 g/dL (3.4-5.0); ANION GAP 21.8 mmol/L (8-16); BILIRUBIN - TOTAL 0.39 mg/dL (0.2-1.3); CALCIUM 8.3 mg/dL (8.5-10.1); CARBON DIOXIDE 19.9 mmol/L (21.0-32.0); CREATININE - SERUM 5.1 mg/dL (0.6-1.3); POTASSIUM - SERUM 3.7 mmol/L (3.5-5.1); PROTEIN - SERUM 6.3 g/dL (6.4-8.2)
[2018-07-29] VITALS (22 sets, daily range): BP systolic 94–130; BP diastolic 42–63
[2018-07-29 05:16] LABS: BASOPHILS 0.2 % (0-2); EOSINOPHILS 1.6 % (0-7); HEMATOCRIT 27.4 % (36.0-48.0); HEMOGLOBIN 9.1 g/dL (12-16); IMMATURE GRANULOCYTES 0.4 % (0-5); LYMPHOCYTES 6.2 % (15-50); MCH 29.1 pg (26.0-34.0); MCHC 33.2 g/dL (31.0-37.0); MCV 87.5 fL (80.0-100.0); MEAN PLATELET VOLUME 11.7 fL (7.4-10.4); MONOCYTES 10.1 % (2-11); NEUTROPHILS 81.5 % (40-80); PLATELET COUNT 197 10x3/uL (130-400); RBC 3.13 10x6/uL (4.00-5.40); RDW 14.9 % (11.5-14.5); WBC 11.1 10x3/uL (4.8-10.8)
[2018-07-29 06:03] LABS: ALBUMIN 1.9 g/dL (3.4-5.0); BILIRUBIN - TOTAL 0.46 mg/dL (0.2-1.3); CARBON DIOXIDE 23.7 mmol/L (21.0-32.0); PHOSPHOROUS 4.2 mg/dL (2.5-4.9); PROTEIN - SERUM 6.7 g/dL (6.4-8.2)
[2018-07-29 06:09] LABS: CREATININE - SERUM 3.5 mg/dL (0.6-1.3)
[2018-07-29 06:10] LABS: ANION GAP 18.4 mmol/L (8-16); POTASSIUM - SERUM 3.1 mmol/L (3.5-5.1)
[2018-07-29 09:19] LABS: HEPATITIS C ANTIBODY 0.2 S/CO RAT (0.0-0.9)
[2018-07-30] VITALS (24 sets, daily range): BP systolic 88–130; BP diastolic 41–97
[2018-07-30 05:26] LABS: BASOPHILS 0.2 % (0-2); HEMATOCRIT 27.1 % (36.0-48.0); HEMOGLOBIN 8.6 g/dL (12-16); IMMATURE GRANULOCYTES 0.6 % (0-5); LYMPHOCYTES 6.9 % (15-50); MCHC 31.7 g/dL (31.0-37.0); MCV 88.3 fL (80.0-100.0); MEAN PLATELET VOLUME 11.2 fL (7.4-10.4); MONOCYTES 11.8 % (2-11); NEUTROPHILS 78.5 % (40-80); PLATELET COUNT 218 10x3/uL (130-400); RBC 3.07 10x6/uL (4.00-5.40); RDW 14.8 % (11.5-14.5); WBC 10.2 10x3/uL (4.8-10.8)
[2018-07-30 05:57] LABS: ANION GAP 17.8 mmol/L (8-16); CALCIUM 8.7 mg/dL (8.5-10.1); CARBON DIOXIDE 22.7 mmol/L (21.0-32.0); CREATININE - SERUM 4.1 mg/dL (0.6-1.3); MAGNESIUM - SERUM 2.3 mg/dL (1.8-2.4); PHOSPHOROUS 4.5 mg/dL (2.5-4.9)
[2018-07-30 05:58] LABS: POTASSIUM - SERUM 3.5 mmol/L (3.5-5.1)
[2018-07-31] VITALS (23 sets, daily range): BP systolic 98–132; BP diastolic 46–62
[2018-07-31 04:27] LABS: BASOPHILS 0.3 % (0-2); HEMATOCRIT 27.2 % (36.0-48.0); HEMOGLOBIN 8.6 g/dL (12-16); IMMATURE GRANULOCYTES 0.5 % (0-5); MCH 28.1 pg (26.0-34.0); MCHC 31.6 g/dL (31.0-37.0); MCV 88.9 fL (80.0-100.0); MEAN PLATELET VOLUME 11.1 fL (7.4-10.4); MONOCYTES 6.3 % (2-11); NEUTROPHILS 78.9 % (40-80); PLATELET COUNT 186 10x3/uL (130-400); RBC 3.06 10x6/uL (4.00-5.40); RDW 14.6 % (11.5-14.5); WBC 10.7 10x3/uL (4.8-10.8)
[2018-07-31 04:40] LABS: ANION GAP 12.6 mmol/L (8-16); APTT 36.3 SECONDS (22.8-39.4); CALCIUM 8.7 mg/dL (8.5-10.1); CREATININE - SERUM 3.2 mg/dL (0.6-1.3); INR 1.21 (0.85-1.17); MAGNESIUM - SERUM 2.2 mg/dL (1.8-2.4); POTASSIUM - SERUM 3.6 mmol/L (3.5-5.1); PROTEIN - SERUM 6.8 g/dL (6.4-8.2); PROTIME 14.7 SECONDS (11.6-15.0)
[2018-07-31 04:44] LABS: PHOSPHOROUS 3.1 mg/dL (2.5-4.9)
[2018-07-31 11:39] LABS: PROTEIN - BODY FLUID 2.8 G/DL
[2018-07-31 12:26] LABS: MACROPHAGES BF 67 %; MESOTHELIALS BF 5 %; NEUT - BF 3 %
[2018-08-01] VITALS (24 sets, daily range): BP systolic 95–120; BP diastolic 38–75
[2018-08-01 08:45] LABS: BASOPHILS 0.3 % (0-2); EOSINOPHILS 2.3 % (0-7); HEMATOCRIT 24.9 % (36.0-48.0); IMMATURE GRANULOCYTES 0.3 % (0-5); LYMPHOCYTES 5.5 % (15-50); MCH 28.3 pg (26.0-34.0); MCHC 32.1 g/dL (31.0-37.0); MEAN PLATELET VOLUME 11.7 fL (7.4-10.4); MONOCYTES 12.9 % (2-11); NEUTROPHILS 78.7 % (40-80); PLATELET COUNT 197 10x3/uL (130-400); RBC 2.83 10x6/uL (4.00-5.40); RDW 14.5 % (11.5-14.5); WBC 9.7 10x3/uL (4.8-10.8)
[2018-08-01 09:07] LABS: CALCIUM 8.9 mg/dL (8.5-10.1); CARBON DIOXIDE 27.1 mmol/L (21.0-32.0); POTASSIUM - SERUM 3.1 mmol/L (3.5-5.1)
[2018-08-01 19:07] LABS: ACID FAST SMEAR Negative (()); AFB SPECIMEN PROCESSING Concentration (())
[2018-08-01 19:07] LABS: ACID FAST SMEAR Negative (()); AFB SPECIMEN PROCESSING Concentration (())
[2018-08-02] VITALS (25 sets, daily range): BP systolic 92–137; BP diastolic 43–64
[2018-08-02 05:25] LABS: BASOPHILS 0.3 % (0-2); EOSINOPHILS 1.8 % (0-7); HEMATOCRIT 25.4 % (36.0-48.0); IMMATURE GRANULOCYTES 0.5 % (0-5); LYMPHOCYTES 11.7 % (15-50); MCH 28.3 pg (26.0-34.0); MCHC 31.5 g/dL (31.0-37.0); MCV 89.8 fL (80.0-100.0); MONOCYTES 6.7 % (2-11); PLATELET COUNT 206 10x3/uL (130-400); RBC 2.83 10x6/uL (4.00-5.40); RDW 14.4 % (11.5-14.5); WBC 12.1 10x3/uL (4.8-10.8)
[2018-08-02 06:16] LABS: ANION GAP 14.8 mmol/L (8-16); CALCIUM 9.2 mg/dL (8.5-10.1); CARBON DIOXIDE 26.4 mmol/L (21.0-32.0); CREATININE - SERUM 3.7 mg/dL (0.6-1.3); MAGNESIUM - SERUM 2.2 mg/dL (1.8-2.4); PHOSPHOROUS 4.2 mg/dL (2.5-4.9); POTASSIUM - SERUM 3.2 mmol/L (3.5-5.1); THYROID STIMULATING HORMONE 4.38 uIU/mL (0.36-3.74)
[2018-08-03] VITALS (24 sets, daily range): BP systolic 87–133; BP diastolic 42–72
[2018-08-03 05:18] LABS: BASOPHILS 0.3 % (0-2); EOSINOPHILS 1.6 % (0-7); HEMATOCRIT 26.2 % (36.0-48.0); HEMOGLOBIN 8.3 g/dL (12-16); IMMATURE GRANULOCYTES 0.5 % (0-5); LYMPHOCYTES 8.1 % (15-50); MCH 28.3 pg (26.0-34.0); MCHC 31.7 g/dL (31.0-37.0); MCV 89.4 fL (80.0-100.0); MEAN PLATELET VOLUME 12.1 fL (7.4-10.4); MONOCYTES 7.8 % (2-11); NEUTROPHILS 81.7 % (40-80); PLATELET COUNT 250 10x3/uL (130-400); RBC 2.93 10x6/uL (4.00-5.40); RDW 14.4 % (11.5-14.5); WBC 12.7 10x3/uL (4.8-10.8)
[2018-08-03 05:44] LABS: ALBUMIN 1.9 g/dL (3.4-5.0); ANION GAP 16.8 mmol/L (8-16); BILIRUBIN - TOTAL 0.38 mg/dL (0.2-1.3); CALCIUM 8.9 mg/dL (8.5-10.1); CARBON DIOXIDE 25.9 mmol/L (21.0-32.0); CREATININE - SERUM 4.5 mg/dL (0.6-1.3); MAGNESIUM - SERUM 2.3 mg/dL (1.8-2.4); PHOSPHOROUS 4.9 mg/dL (2.5-4.9); PROTEIN - SERUM 7.4 g/dL (6.4-8.2)
[2018-08-03 05:45] LABS: POTASSIUM - SERUM 3.7 mmol/L (3.5-5.1)
[2018-08-03 13:13] LABS: FUNGUS STAIN Final report (())
[2018-08-03 13:13] LABS: FUNGUS STAIN Final report (())
[2018-08-04] VITALS (24 sets, daily range): BP systolic 90–118; BP diastolic 44–77
[2018-08-04 05:47] LABS: BASOPHILS 0.4 % (0-2); EOSINOPHILS 2.6 % (0-7); IMMATURE GRANULOCYTES 0.4 % (0-5); LYMPHOCYTES 5.7 % (15-50); MCH 28.2 pg (26.0-34.0); MCHC 31.3 g/dL (31.0-37.0); MCV 90.2 fL (80.0-100.0); MEAN PLATELET VOLUME 11.3 fL (7.4-10.4); MONOCYTES 13.1 % (2-11); NEUTROPHILS 77.8 % (40-80); PLATELET COUNT 274 10x3/uL (130-400); RBC 2.66 10x6/uL (4.00-5.40); RDW 14.2 % (11.5-14.5); WBC 11.1 10x3/uL (4.8-10.8)
[2018-08-04 06:06] LABS: ALBUMIN 1.8 g/dL (3.4-5.0); ANION GAP 19.1 mmol/L (8-16); BILIRUBIN - TOTAL 0.48 mg/dL (0.2-1.3); CALCIUM 9.2 mg/dL (8.5-10.1); CARBON DIOXIDE 24.7 mmol/L (21.0-32.0); CREATININE - SERUM 5.6 mg/dL (0.6-1.3); POTASSIUM - SERUM 3.8 mmol/L (3.5-5.1); PROTEIN - SERUM 7.2 g/dL (6.4-8.2)
[2018-08-04 06:17] LABS: HEMOGLOBIN 7.5 g/dL (12-16)
[2018-08-05] VITALS (17 sets, daily range): BP systolic 94–138; BP diastolic 45–80
[2018-08-05 05:17] LABS: BASOPHILS 0.4 % (0-2); EOSINOPHILS 2.4 % (0-7); HEMATOCRIT 28.8 % (36.0-48.0); HEMOGLOBIN 9.4 g/dL (12-16); IMMATURE GRANULOCYTES 0.4 % (0-5); LYMPHOCYTES 10.2 % (15-50); MCH 29.7 pg (26.0-34.0); MCHC 32.6 g/dL (31.0-37.0); MCV 91.1 fL (80.0-100.0); MEAN PLATELET VOLUME 11.7 fL (7.4-10.4); MONOCYTES 7.3 % (2-11); NEUTROPHILS 79.3 % (40-80); PLATELET COUNT 279 10x3/uL (130-400); RBC 3.16 10x6/uL (4.00-5.40); RDW 14.4 % (11.5-14.5); WBC 11.5 10x3/uL (4.8-10.8)
[2018-08-05 05:25] LABS: ALBUMIN 1.9 g/dL (3.4-5.0); ANION GAP 21.2 mmol/L (8-16); BILIRUBIN - TOTAL 0.51 mg/dL (0.2-1.3); CALCIUM 9.1 mg/dL (8.5-10.1); CARBON DIOXIDE 23.5 mmol/L (21.0-32.0); CREATININE - SERUM 4.7 mg/dL (0.6-1.3); POTASSIUM - SERUM 3.7 mmol/L (3.5-5.1); PROTEIN - SERUM 7.4 g/dL (6.4-8.2)
[2018-08-06] VITALS: BP 118/57
[2018-08-06 05:02] VITALS: BP 117/54
[2018-08-06 06:19] LABS: BASOPHILS 0.4 % (0-2); EOSINOPHILS 3.2 % (0-7); HEMATOCRIT 28.1 % (36.0-48.0); HEMOGLOBIN 9.5 g/dL (12-16); IMMATURE GRANULOCYTES 0.5 % (0-5); LYMPHOCYTES 10.3 % (15-50); MCH 30.4 pg (26.0-34.0); MCHC 33.8 g/dL (31.0-37.0); MCV 89.8 fL (80.0-100.0); MEAN PLATELET VOLUME 10.9 fL (7.4-10.4); MONOCYTES 7.1 % (2-11); NEUTROPHILS 78.5 % (40-80); PLATELET COUNT 280 10x3/uL (130-400); RBC 3.13 10x6/uL (4.00-5.40); RDW 14.7 % (11.5-14.5); WBC 11.1 10x3/uL (4.8-10.8)
[2018-08-06 07:02] LABS: ALBUMIN 1.9 g/dL (3.4-5.0); ANION GAP 19.2 mmol/L (8-16); BILIRUBIN - TOTAL 0.55 mg/dL (0.2-1.3); CREATININE - SERUM 6.1 mg/dL (0.6-1.3); POTASSIUM - SERUM 4.2 mmol/L (3.5-5.1); PROTEIN - SERUM 7.5 g/dL (6.4-8.2)
[2018-08-06 08:07] VITALS: BP 101/46
[2018-08-06 11:44] VITALS: BP 108/47
[2018-08-06 17:13] LABS: FUNGUS CULTURE RESULT 1 Candida albicans (()); FUNGUS MYCOLOGY CULTURE Preliminary report (())
[2018-08-06 17:13] LABS: FUNGUS MYCOLOGY CULTURE Preliminary report (())
[2018-08-06 20:00] VITALS: BP 115/45
[2018-08-07 04:00] VITALS: BP 129/53
[2018-08-07 05:35] LABS: BASOPHILS 0.4 % (0-2); EOSINOPHILS 2.1 % (0-7); HEMATOCRIT 27.9 % (36.0-48.0); HEMOGLOBIN 9.2 g/dL (12-16); IMMATURE GRANULOCYTES 0.5 % (0-5); LYMPHOCYTES 11.3 % (15-50); MCH 29.5 pg (26.0-34.0); MCV 89.4 fL (80.0-100.0); MEAN PLATELET VOLUME 11.1 fL (7.4-10.4); MONOCYTES 5.6 % (2-11); NEUTROPHILS 80.1 % (40-80); PLATELET COUNT 288 10x3/uL (130-400); RBC 3.12 10x6/uL (4.00-5.40); RDW 14.6 % (11.5-14.5)
[2018-08-07 06:18] LABS: ALBUMIN 2.6 g/dL (3.4-5.0); ANION GAP 24.2 mmol/L (8-16); BILIRUBIN - TOTAL 0.58 mg/dL (0.2-1.3); CALCIUM 9.3 mg/dL (8.5-10.1); CARBON DIOXIDE 23.5 mmol/L (21.0-32.0); POTASSIUM - SERUM 3.7 mmol/L (3.5-5.1); PROTEIN - SERUM 7.8 g/dL (6.4-8.2)
[2018-08-07 08:00] VITALS: BP 126/78
[2018-08-07 16:09] VITALS: BP 124/76
[2018-08-07 17:55] VITALS: BP 113/49
[2018-08-07 23:55] VITALS: BP 123/48
[2018-08-08 03:25] LABS: BASOPHILS 0.4 % (0-2); EOSINOPHILS 3.2 % (0-7); HEMATOCRIT 29.6 % (36.0-48.0); HEMOGLOBIN 9.7 g/dL (12-16); IMMATURE GRANULOCYTES 0.3 % (0-5); LYMPHOCYTES 10.6 % (15-50); MCH 29.7 pg (26.0-34.0); MCHC 32.8 g/dL (31.0-37.0); MCV 90.5 fL (80.0-100.0); MEAN PLATELET VOLUME 10.9 fL (7.4-10.4); MONOCYTES 4.8 % (2-11); NEUTROPHILS 80.7 % (40-80); PLATELET COUNT 277 10x3/uL (130-400); RBC 3.27 10x6/uL (4.00-5.40); RDW 14.4 % (11.5-14.5); WBC 11.6 10x3/uL (4.8-10.8)
[2018-08-08 03:45] VITALS: BP 128/53
[2018-08-08 03:48] LABS: ANION GAP 18.8 mmol/L (8-16); CALCIUM 9.7 mg/dL (8.5-10.1); CARBON DIOXIDE 24.4 mmol/L (21.0-32.0); CREATININE - SERUM 6.2 mg/dL (0.6-1.3); POTASSIUM - SERUM 4.2 mmol/L (3.5-5.1)
[2018-08-08 08:26] VITALS: BP 125/56
[2018-08-08 17:00] VITALS: BP 121/54
[2018-08-09] VITALS: BP 116/49
[2018-08-09 05:37] VITALS: BP 122/52
[2018-08-09 06:36] LABS: BASOPHILS 0.2 % (0-2); EOSINOPHILS 2.4 % (0-7); HEMATOCRIT 28.8 % (36.0-48.0); HEMOGLOBIN 9.6 g/dL (12-16); IMMATURE GRANULOCYTES 0.3 % (0-5); MCH 30.4 pg (26.0-34.0); MCHC 33.3 g/dL (31.0-37.0); MCV 91.1 fL (80.0-100.0); MEAN PLATELET VOLUME 10.8 fL (7.4-10.4); MONOCYTES 11.2 % (2-11); NEUTROPHILS 79.9 % (40-80); PLATELET COUNT 306 10x3/uL (130-400); RBC 3.16 10x6/uL (4.00-5.40); RDW 14.6 % (11.5-14.5); WBC 12.2 10x3/uL (4.8-10.8)
[2018-08-09 06:44] LABS: CALCIUM 9.5 mg/dL (8.5-10.1); CARBON DIOXIDE 27.8 mmol/L (21.0-32.0); POTASSIUM - SERUM 3.8 mmol/L (3.5-5.1)
[2018-08-09 17:00] VITALS: BP 126/58
[2018-08-10] VITALS: BP 132/63
[2018-08-10 05:51] VITALS: BP 125/55
[2018-08-10 06:29] LABS: BASOPHILS 0.3 % (0-2); EOSINOPHILS 2.4 % (0-7); HEMATOCRIT 28.9 % (36.0-48.0); HEMOGLOBIN 9.6 g/dL (12-16); IMMATURE GRANULOCYTES 0.4 % (0-5); LYMPHOCYTES 7.9 % (15-50); MCH 30.1 pg (26.0-34.0); MCHC 33.2 g/dL (31.0-37.0); MCV 90.6 fL (80.0-100.0); MEAN PLATELET VOLUME 10.8 fL (7.4-10.4); MONOCYTES 4.6 % (2-11); NEUTROPHILS 84.4 % (40-80); PLATELET COUNT 302 10x3/uL (130-400); RBC 3.19 10x6/uL (4.00-5.40); RDW 14.5 % (11.5-14.5); WBC 14.9 10x3/uL (4.8-10.8)
[2018-08-10 06:38] LABS: ANION GAP 16.9 mmol/L (8-16); CALCIUM 9.8 mg/dL (8.5-10.1); CARBON DIOXIDE 25.8 mmol/L (21.0-32.0); CREATININE - SERUM 5.7 mg/dL (0.6-1.3); POTASSIUM - SERUM 3.7 mmol/L (3.5-5.1)
[2018-08-10 08:58] VITALS: BP 122/47
[2018-08-10 11:39] VITALS: BP 131/50
[2018-08-10 15:33] VITALS: BP 131/52
[2018-08-10 20:00] VITALS: BP 121/49
[2018-08-11] VITALS: BP 129/61
[2018-08-11 07:48] LABS: BASOPHILS 0.4 % (0-2); EOSINOPHILS 2.3 % (0-7); HEMATOCRIT 29.7 % (36.0-48.0); HEMOGLOBIN 9.9 g/dL (12-16); IMMATURE GRANULOCYTES 0.4 % (0-5); LYMPHOCYTES 8.6 % (15-50); MCH 29.9 pg (26.0-34.0); MCHC 33.3 g/dL (31.0-37.0); MCV 89.7 fL (80.0-100.0); MEAN PLATELET VOLUME 10.8 fL (7.4-10.4); MONOCYTES 3.2 % (2-11); NEUTROPHILS 85.1 % (40-80); PLATELET COUNT 296 10x3/uL (130-400); RBC 3.31 10x6/uL (4.00-5.40); RDW 14.7 % (11.5-14.5); WBC 13.8 10x3/uL (4.8-10.8)
[2018-08-11 08:04] LABS: ANION GAP 22.8 mmol/L (8-16); CALCIUM 10.3 mg/dL (8.5-10.1); CARBON DIOXIDE 21.3 mmol/L (21.0-32.0); CREATININE - SERUM 6.4 mg/dL (0.6-1.3); POTASSIUM - SERUM 4.1 mmol/L (3.5-5.1)
[2018-08-11 08:13] VITALS: BP 119/53
[2018-08-11 16:16] VITALS: BP 119/62
[2018-08-11 21:09] VITALS: BP 120/43
[2018-08-12 04:00] VITALS: BP 134/56
[2018-08-12 06:55] LABS: BASOPHILS 0.4 % (0-2); EOSINOPHILS 2.4 % (0-7); HEMATOCRIT 30.1 % (36.0-48.0); HEMOGLOBIN 9.8 g/dL (12-16); IMMATURE GRANULOCYTES 0.5 % (0-5); LYMPHOCYTES 3.6 % (15-50); MCH 29.3 pg (26.0-34.0); MCHC 32.6 g/dL (31.0-37.0); MCV 90.1 fL (80.0-100.0); MEAN PLATELET VOLUME 10.7 fL (7.4-10.4); MONOCYTES 8.6 % (2-11); NEUTROPHILS 84.5 % (40-80); PLATELET COUNT 261 10x3/uL (130-400); RBC 3.34 10x6/uL (4.00-5.40); WBC 12.4 10x3/uL (4.8-10.8)
[2018-08-12 06:59] LABS: ANION GAP 20.9 mmol/L (8-16); CARBON DIOXIDE 22.8 mmol/L (21.0-32.0); CREATININE - SERUM 6.1 mg/dL (0.6-1.3); POTASSIUM - SERUM 3.7 mmol/L (3.5-5.1)
[2018-08-12 09:00] VITALS: BP 127/55
[2018-08-12 20:00] VITALS: BP 90/42
[2018-08-13 00:09] VITALS: BP 87/48
[2018-08-13 04:00] VITALS: BP 99/45
[2018-08-13 06:51] LABS: BASOPHILS 0.4 % (0-2); EOSINOPHILS 1.9 % (0-7); HEMATOCRIT 25.6 % (36.0-48.0); HEMOGLOBIN 8.3 g/dL (12-16); IMMATURE GRANULOCYTES 0.3 % (0-5); LYMPHOCYTES 4.5 % (15-50); MCH 29.2 pg (26.0-34.0); MCHC 32.4 g/dL (31.0-37.0); MCV 90.1 fL (80.0-100.0); MONOCYTES 8.7 % (2-11); NEUTROPHILS 84.2 % (40-80); PLATELET COUNT 239 10x3/uL (130-400); RBC 2.84 10x6/uL (4.00-5.40); RDW 15.1 % (11.5-14.5); WBC 13.4 10x3/uL (4.8-10.8)
[2018-08-13 06:59] LABS: INR 1.25 (0.85-1.17); PROTIME 15.2 SECONDS (11.6-15.0)
[2018-08-13 07:05] LABS: ALBUMIN 2.5 g/dL (3.4-5.0); ANION GAP 22.6 mmol/L (8-16); BILIRUBIN - TOTAL 0.44 mg/dL (0.2-1.3); CALCIUM 9.9 mg/dL (8.5-10.1); CARBON DIOXIDE 21.4 mmol/L (21.0-32.0); CREATININE - SERUM 6.5 mg/dL (0.6-1.3); PROTEIN - SERUM 7.6 g/dL (6.4-8.2)
[2018-08-13 08:17] VITALS: BP 91/43
[2018-08-13 11:05] VITALS: BP 109/73
[2018-08-13 17:18] VITALS: BP 120/69
[2018-08-13 23:52] VITALS: BP 110/47
[2018-08-14 04:00] VITALS: BP 94/40
[2018-08-14 07:58] LABS: BASOPHILS 0.4 % (0-2); EOSINOPHILS 2.3 % (0-7); HEMATOCRIT 28.4 % (36.0-48.0); HEMOGLOBIN 9.5 g/dL (12-16); IMMATURE GRANULOCYTES 0.5 % (0-5); LYMPHOCYTES 8.1 % (15-50); MCH 29.5 pg (26.0-34.0); MCHC 33.5 g/dL (31.0-37.0); MCV 88.2 fL (80.0-100.0); MEAN PLATELET VOLUME 10.9 fL (7.4-10.4); MONOCYTES 5.4 % (2-11); NEUTROPHILS 83.3 % (40-80); PLATELET COUNT 219 10x3/uL (130-400); RBC 3.22 10x6/uL (4.00-5.40); RDW 16.5 % (11.5-14.5); WBC 13.9 10x3/uL (4.8-10.8)
[2018-08-14 08:18] LABS: ALBUMIN 2.5 g/dL (3.4-5.0); ANION GAP 22.3 mmol/L (8-16); BILIRUBIN - TOTAL 0.52 mg/dL (0.2-1.3); CALCIUM 10.1 mg/dL (8.5-10.1); CARBON DIOXIDE 21.1 mmol/L (21.0-32.0); CREATININE - SERUM 6.9 mg/dL (0.6-1.3); POTASSIUM - SERUM 3.4 mmol/L (3.5-5.1); PROTEIN - SERUM 7.7 g/dL (6.4-8.2)
[2018-08-14 18:29] VITALS: BP 136/56
[2018-08-14 19:59] VITALS: BP 130/45
[2018-08-14 23:45] VITALS: BP 131/53
[2018-08-15 03:55] VITALS: BP 114/50
[2018-08-15 08:15] VITALS: BP 126/49
[2018-08-15 12:51] VITALS: BP 122/51
[2018-08-15 16:14] VITALS: BP 120/52
[2018-08-15 19:55] VITALS: BP 129/61
[2018-08-15 23:45] VITALS: BP 110/48
[2018-08-16 03:55] VITALS: BP 117/47
[2018-08-16 11:34] VITALS: BP 124/48
[2018-08-16 17:07] VITALS: BP 137/48
[2018-08-16 23:45] VITALS: BP 109/35
[2018-08-17 03:45] VITALS: BP 104/34
[2018-08-17 04:46] LABS: HEMOGLOBIN 8.3 g/dL (12-16); MCH 28.6 pg (26.0-34.0); MCHC 31.9 g/dL (31.0-37.0); MCV 89.7 fL (80.0-100.0); MEAN PLATELET VOLUME 10.1 fL (7.4-10.4); PLATELET COUNT 180 10x3/uL (130-400); RDW 15.6 % (11.5-14.5); WBC 20.8 10x3/uL (4.8-10.8)
[2018-08-17 04:55] LABS: CALCIUM 9.1 mg/dL (8.5-10.1); CARBON DIOXIDE 26.3 mmol/L (21.0-32.0); CREATININE - SERUM 3.9 mg/dL (0.6-1.3); MAGNESIUM - SERUM 2.2 mg/dL (1.8-2.4); POTASSIUM - SERUM 3.3 mmol/L (3.5-5.1)
[2018-08-17 05:37] LABS: LYMPHOCYTES 3 % (15-50); NEUTROPHILS 92 % (40-80); PLATELET ESTIMATE NORMAL
== END 2018-08-17 08:57 | DRG 682 ==
LOC: D.ER 20:27 → D.ICU 21:33 → D.M2 21:33 → D.ICU 07-24 12:13 → D.M2 08-05 16:23
PROVIDERS: Family Medicine; Family Medicine Adult Medicine; General Practice; Internal Medicine; Internal Medicine Nephrology; Internal Medicine Pulmonary Disease
PROC: 5A12012 Performance of Cardiac Output, Single, Manual (ICD-10-PCS; principal; 2018-07-24)
PROC: 0BH17EZ Insertion of Endotracheal Airway into Trachea, Via Natural or Artificial Opening (ICD-10-PCS; 2018-07-24)
PROC: 5A1955Z Respiratory Ventilation, Greater than 96 Consecutive Hours (ICD-10-PCS; 2018-07-24)
PROC: 05HN33Z Insertion of Infusion Device into Left Internal Jugular Vein, Percutaneous Approach (ICD-10-PCS; 2018-07-27)
PROC: 0BCB8ZZ Extirpation of Matter from Left Lower Lobe Bronchus, Via Natural or Artificial Opening Endoscopic (ICD-10-PCS; 2018-07-30)
PROC: 0BC68ZZ Extirpation of Matter from Right Lower Lobe Bronchus, Via Natural or Artificial Opening Endoscopic (ICD-10-PCS; 2018-07-30)
PROC: 0W9B3ZZ Drainage of Left Pleural Cavity, Percutaneous Approach (ICD-10-PCS; 2018-07-31)
DX: N17.9 Acute kidney failure, unspecified (principal); J96.02 Acute respiratory failure with hypercapnia; J96.01 Acute respiratory failure with hypoxia; I50.23 Acute on chronic systolic (congestive) heart failure; M86.18 Other acute osteomyelitis, other site; I42.9 Cardiomyopathy, unspecified; I13.0 Hypertensive heart and chronic kidney disease with heart failure and stage 1 through stage 4 chronic kidney disease, or unspecified chronic kidney disease; T81.41XD Infection following a procedure, superficial incisional surgical site, subsequent encounter; Y83.8 Other surgical procedures as the cause of abnormal reaction of the patient, or of later complication, without mention of misadventure at the time of the procedure; E11.69 Type 2 diabetes mellitus with other specified complication; B96.5 Pseudomonas (aeruginosa) (mallei) (pseudomallei) as the cause of diseases classified elsewhere; E11.22 Type 2 diabetes mellitus with diabetic chronic kidney disease; N18.9 Chronic kidney disease, unspecified; I25.10 Atherosclerotic heart disease of native coronary artery without angina pectoris; D64.9 Anemia, unspecified; E78.5 Hyperlipidemia, unspecified; Z95.2 Presence of prosthetic heart valve; Z95.1 Presence of aortocoronary bypass graft; I08.1 Rheumatic disorders of both mitral and tricuspid valves; R53.81 Other malaise